=== PATIENT | female | born 1955 | race Asian ===

== ENCOUNTER 2017-01-05 06:55 | Emergency (ER) | payer OTHER ==
[~2017-01-05] VITALS: Ht 149.9 cm; Wt 50.0 kg
[~2017-01-05 06:55] MED LIST: GLUCTAB PO
[2017-01-05 06:59] VITALS: BP 180/90; PULSE 99; RESP 16; TEMP 98.1; O2SAT 99
--- NOTE | 2017-01-05 07:18 | PD ---
HPI Chief Complaint: Skin Problem Time Seen by Provider: 07:18 Travel History International Travel<30 days: No Contact w/Intl Traveler<30days: No Traveled to known affect area: No ( ) History of Present Illness HPI 61-year-old female presents to the emergency Department with complaint of redness and swelling to the back of her left hand that has worsened since Monday after being stuck with a cactus plant. Denies fever, chills, nausea, vomiting. Denies paresthesias, loss of sensation, decreased motion, decreased strength to the affected extremity. Has taken Tylenol with minimal relief of symptoms. Has not tried any other treatments to alleviate her symptoms. Does not know if she is up-to-date on her tetanus vaccination. Denies allergies. History of borderline diabetes. No other modifying factors or associated signs and symptoms. PFSH Past Medical History Medical History: Denies Significant Hx Diabetes: Yes Patient Takes Glucophage: No (STOPPED TAKING 6 MONTHS AGO) Tetanus Vaccination: > 5 Years ?: Not Social History Alcohol Use: No Tobacco Use: No Substance Use: No Allergies-Medications (Allergen,Severity, Reaction): Coded Allergies: No Known Allergies (Unverified , 01/05/17) Reported Meds & Prescriptions Reported Meds & Active Scripts Active Ibuprofen 600 Mg Tab 600 Mg PO Q8HR PRN Bactrim DS (Sulfamethoxazole-Trimethoprim) 800-160 Mg Tab 1 Tab PO BID 10 Days Keflex (Cephalexin) 500 Mg Cap 500 Mg PO Q6H 10 Days Review of Systems Except as stated in HPI: all other systems reviewed are Neg Physical Exam Narrative GENERAL: Well-nourished, well-developed female patient, in no acute distress; afebrile, nontoxic-appearing SKIN: Dorsal aspect of left hand is erythematous, edematous and with warmth to touch. Left upper extremity supple and non-tense with 2+ radial pulse and sensory intact. Hand is with full range of motion at all finger joints and less than 3 second cap refill. HEAD: Atraumatic. Normocephalic. EYES: Pupils equal and round. No scleral icterus. No injection or drainage. ENT: Mucosa pink and moist. Airway patent. NECK: Trachea midline. CARDIOVASCULAR: Regular rate. RESPIRATORY: No accessory muscle use. GASTROINTESTINAL: Flat. MUSCULOSKELETAL: No obvious deformities. No clubbing. No cyanosis. No edema. NEUROLOGICAL: Awake and alert. Oriented 3. No obvious cranial nerve deficits. Motor grossly within normal limits. Normal speech. PSYCHIATRIC: Appropriate mood and affect; insight and judgment normal. Data Data Last Documented VS Vital Signs Date Time Temp Pulse Resp B/P Pulse Ox O2 Delivery O2 Flow Rate FiO2 01/05/17 06:59 98.1 99 16 180/90 99 Room Air Orders Tetanus/Diphtheria Tox Adult (Tetanus/Di (01/05/17 07:30) Acetaminophen (Tylenol) (01/05/17 07:30) MDM Medical Decision Making Medical Screen Exam Complete: Yes Emergency Medical Condition: Yes Medical Record Reviewed: Yes Differential Diagnosis Cellulitis, puncture wound, medical clearance Narrative Course 61-year-old female physical exam consistent with cellulitis to the dorsal aspect of her left hand. Patient is afebrile and nontoxic-appearing. She denies fever, chills, nausea, vomiting. The left upper extremity supple and non -tense with 2+ radial pulses and sensory intact and with full strength and range of motion. Tetanus updated in the ER. Tylenol ordered. Keflex, Bactrim , ibuprofen prescribed for home. Patient verbalizes understanding and agreement with treatment plan. Patient is medically cleared and stable for discharge. Discussed reasons to return to the emergency department. Instructed patient to follow up with primary care provider. Patient agrees with treatment plan. The patients vital signs are stable and the patient is stable for outpatient follow-up and treatment. Patient discharged home, stable and in no acute distress. Diagnosis Primary Impression: Cellulitis of left hand Referrals: Primary Care Physician Patient Instructions: Cellulitis (ED), General Instructions Departure Forms: Tests/Procedures, Work Release Enter return to work date: Jan 05, 2017 Additional Instructions: Complete full course of antibiotics Warm or cold compresses to the affected area Keep area clean and dry Ibuprofen or Tylenol as directed and as needed for pain and inflammation Follow-up with primary care provider Return to emergency department immediately with worsening of symptoms Med/Other Pt SpecificInfo: Prescription(s) given Scripts Ibuprofen 600 Mg [id number] Mg PO Q8HR PRN (PAIN SCALE 1 TO 10) #20 TAB Ref 0 Prov:Patience White 01/05/17 Sulfamethoxazole-Trimethoprim (Bactrim DS)800-160 Mg Tab1 Tab PO BID 10 Days Ref 0 Prov:Patience White 01/05/17 Cephalexin (Keflex)500 Mg [id number] Mg PO Q6H 10 Days Ref 0 Prov:Patience White 01/05/17 Disposition: 01 DISCHARGE HOME Condition: Stable Patience White Jan 05, 2017 07:18
[2017-01-05] MEDS ORDERED: BACT800T5 PO (07:23)
[2017-01-05] MEDS ORDERED: IBUP-232 PO (07:23)
[2017-01-05] MEDS ORDERED: CEPH-460 PO (07:23)
[2017-01-05] MEDS ORDERED: TETANUS/DIPHTHERIA TOXOID ADULT 0.5 ML VIAL IM ONE (07:30)
[2017-01-05] MEDS ORDERED: ACETAMINOPHEN 325 MG TAB PO ONE (07:30)
[2017-01-16] MEDS ORDERED: BLOO1KIT49 (15:43)
[2017-01-27] MEDS ORDERED: METF500T PO (13:09)
[2017-01-30] MEDS ORDERED: METF500T PO (12:17)
[2017-02-03] MEDS ORDERED: METF500T PO (08:50)
[2017-02-03] MEDS ORDERED: LISI-519 PO (09:00)
[2017-03-06] MEDS ORDERED: BLOOD GLUCOSE T1 TES (22:36)
== END 2017-01-05 07:35 | disposition home or self-care (01) ==
LOC: NEPB 06:55
DX: L03.114 Cellulitis of left upper limb (principal); R73.03 Prediabetes; Z23 Encounter for immunization; X58.XXXA Exposure to other specified factors, initial encounter
CPT/HCPCS: 90471; 90714

== ENCOUNTER 2017-01-07 14:10 | Inpatient (IN) | payer OTHER ==
[~2017-01-07] VITALS: Ht 149.9 cm; Wt 51.9 kg
[~2017-01-07 14:10] MED LIST changes: +BACT800T5 PO; +CEPH-460 PO; -GLUCTAB PO; +IBUP-232 PO
[2017-01-07 14:13] VITALS: BP 175/89; PULSE 104; RESP 15; TEMP 98.2; O2SAT 98
[2017-01-07 17:46] VITALS: BP 159/76; PULSE 77; RESP 16; TEMP 98.4; O2SAT 99
--- NOTE | 2017-01-07 18:07 | PD ---
HPI Chief Complaint: Skin Problem Time Seen by Provider: 18:05 Travel History International Travel<30 days: No Contact w/Intl Traveler<30days: No Traveled to known affect area: No History of Present Illness HPI 61-year-old female presents to the emergency department for evaluation of worsening erythema and swelling to the left hand. Patient was seen on Monday for cellulitis of left hand. She was discharged prescription for Bactrim and Keflex. However, she states the redness and warmth have been worsening. She states the injury occurred on Monday when she was pricked by a cactus plant. The patient states she hasn't taken her antibiotics for 3 days now however, symptoms have been worsening. She denies any fevers. She does report a history of type 2 diabetes. She states she quit taking her metformin approximately one year ago. She does not check her blood sugars. She was not insulin-dependent. She denies any other medical problems or taking any prescribed medications at this time. PFSH Past Medical History Diabetes: Yes ("borderline") Patient Takes Glucophage: No Diminished Hearing: No ?: Not Social History Alcohol Use: No Tobacco Use: No Substance Use: No Allergies-Medications (Allergen,Severity, Reaction): Coded Allergies: No Known Allergies (Unverified , 01/06/17) Reported Meds & Prescriptions Reported Meds & Active Scripts Active Ibuprofen 600 Mg Tab 600 Mg PO Q8HR PRN Bactrim DS (Sulfamethoxazole-Trimethoprim) 800-160 Mg Tab 1 Tab PO BID 10 Days Keflex (Cephalexin) 500 Mg Cap 500 Mg PO Q6H 10 Days Review of Systems Except as stated in HPI: all other systems reviewed are Neg Physical Exam Narrative GENERAL: Well-nourished, well-developed female patient, ambulatory and in no acute distress. Afebrile. SKIN: Focused skin assessment warm/dry. Left dorsal hand is erythematous and warmth. Erythema extends approximately intermediate up the left forearm. There is swelling noted to the left dorsal hand. HEAD: Normocephalic. Atraumatic. EYES: No scleral icterus. No injection or drainage. NECK: Supple, trachea midline. No JVD or lymphadenopathy. CARDIOVASCULAR: Regular rate and rhythm without murmurs, gallops, or rubs. Left radial pulse is 2+ RESPIRATORY: Breath sounds equal bilaterally. No accessory muscle use. Lungs sounds are clear to auscultation. GASTROINTESTINAL: Abdomen soft, non-tender, nondistended. MUSCULOSKELETAL: No cyanosis, or edema. Patient has slightly limited flexion of all MCP joints due to pain and swelling. No evidence of septic joint. Data Data Last Documented VS Vital Signs Date Time Temp Pulse Resp B/P Pulse Ox O2 Delivery O2 Flow Rate FiO2 01/07/17 19:15 69 20 159/80 98 Room Air 01/07/17 17:46 98.4 Orders Iv Access Insert/Monitor (01/07/17 18:02) Complete Blood Count With Diff (01/07/17 18:02) Basic Metabolic Panel (Bmp) (01/07/17 18:02) Blood Culture (01/07/17 18:02) Lactic Acid Sepsis Protocol (01/07/17 18:02) Hand, Complete ([id number]) (01/07/17 ) Vancomycin Inj (Vancomycin Inj) (01/07/17 18:30) Piperacil-Tazo 3.375 Gm Premix (Zosyn 3. (01/07/17 18:30) Sodium Chlor 0.9% 1000 Ml Inj (Ns 1000 M (01/07/17 19:45) Admit Order (Ed Use Only) (01/07/17 19:41) Labs Laboratory Tests Test 01/07/17 18:30 White Blood Count 15.1 TH/MM3 Red Blood Count 4.73 MIL/MM3 Hemoglobin 13.7 GM/DL Hematocrit 41.1 % Mean Corpuscular Volume 87.0 FL Mean Corpuscular Hemoglobin 29.1 PG Mean Corpuscular Hemoglobin 33.4 % Concent Red Cell Distribution Width 13.3 % Platelet Count 302 TH/MM3 Mean Platelet Volume 7.7 FL Neutrophils (%) (Auto) 83.8 % Lymphocytes (%) (Auto) 10.2 % Monocytes (%) (Auto) 5.6 % Eosinophils (%) (Auto) 0.2 % Basophils (%) (Auto) 0.2 % Neutrophils # (Auto) 12.6 TH/MM3 Lymphocytes # (Auto) 1.5 TH/MM3 Monocytes # (Auto) 0.9 TH/MM3 Eosinophils # (Auto) 0.0 TH/MM3 Basophils # (Auto) 0.0 TH/MM3 CBC Comment DIFF FINAL Differential Comment Sodium Level 133 MEQ/L Potassium Level 4.3 MEQ/L Chloride Level 99 MEQ/L Carbon Dioxide Level 24.0 MEQ/L Anion Gap 10 MEQ/L Blood Urea Nitrogen 8 MG/DL Creatinine 0.63 MG/DL Estimat Glomerular Filtration 95 ML/MIN Rate Random Glucose 191 MG/DL Lactic Acid Level 2.4 mmol/L Calcium Level 9.0 MG/DL [facility] Medical Decision Making Medical Screen Exam Complete: Yes Emergency Medical Condition: Yes Medical Record Reviewed: Yes Interpretation(s) Last Impressions Hand X-Ray 01/07/17 0000 Signed Impressions: Service Date/Time: Saturday, January 07, 2017 18:28 - CONCLUSION: Dorsal soft tissue swelling. The osseous structures are grossly intact. Federico Cardenas MD Differential Diagnosis Cellulitis versus abscess versus old outpatient therapy versus sepsis Narrative Course 61-year-old female presents to the emergency department for evaluation of worsening left hand pain, erythema, swelling, warmth. She has been on Bactrim and Keflex for 3 days. Patient has failed outpatient therapy. Patient denies any other symptoms or complaints at this time. CBC shows leukocytosis of 15.1. BMP shows no acute abnormality. Lactic acid is elevated at 2.4. X-ray left hand shows dorsal soft tissue swelling, osseous structures are grossly intact. Patient is given normal saline 1 L IV bolus, Zosyn 3.375 g IV, vancomycin 1 g IV. Patient states the residents are her primary care physician. Dr. Junior accepted admission. Sepsis Criteria SIRS Criteria (2 or more): WBC > 45538, < 4000 or > 10% bands Diagnosis Primary Impression: Cellulitis of left hand Admitting Information Admitting Physician Requests: Admit Naida Apple Jan 07, 2017 18:07
[2017-01-07] MEDS ORDERED: VANCOMYCIN INJ 1,000 MG in SODIUM CHLOR 0.9% 250 ML INJ 250 ML IV ONE (18:30)
[2017-01-07] MEDS ORDERED: PIPERACIL-TAZO 3.375 GM PREMIX 50 ML IV ONE (18:30)
[2017-01-07 18:53] LABS: AUTOMATED NEUTROPHIL # 12.6 TH/MM3 (1.8-7.7); BASOPHIL % 0.2 % (0.0-2.0); EOSINOPHIL % 0.2 % (0.0-4.0); HEMATOCRIT 41.1 % (35.0-46.0); HEMO FLAGS DIFF FINAL; LYMPH % 10.2 % (9.0-44.0); LYMPHOCYTE # 1.5 TH/MM3 (1.0-4.8); MEAN CORPUSCULAR HEMOGLOBIN 29.1 PG (27.0-34.0); MEAN CORPUSCULAR HGB CONC 33.4 % (32.0-36.0); MONO % 5.6 % (0.0-8.0); NEUT % 83.8 % (16.0-70.0); PLATELET COUNT 302 TH/MM3 (150-450); RED BLOOD COUNT 4.73 MIL/MM3 (4.00-5.30); RED CELL DISTRIBUTION WIDTH 13.3 % (11.6-17.2); WHITE BLOOD COUNT 15.1 TH/MM3 (4.0-11.0)
--- NOTE | 2017-01-07 19:10 | PD ---
Physical Exam Date Seen by Provider: Jan 07, 2017 Time Seen by Provider: 18:30 Narrative I, Dr. Sullivan, have reviewed the advance practice practitioner's documentation and am in agreement, met with the patient face to face, made the diagnosis, and the medical decision making was done by me. *My assessment and Findings: Patient seen and evaluated with nurse practitioner , please see nurse practitioner documentation for further details. Patient has had injury to the left hand, has been on 2 antibiotics for cellulitis, returns today because the left hand is getting more red and swollen. On evaluation, there is notable erythema and edema over the left hand dorsum with no underlying fluctuance. Laboratory Tests Test 01/07/17 18:30 White Blood Count 15.1 TH/MM3 (4.0-11.0) Neutrophils (%) (Auto) 83.8 % (16.0-70.0) Neutrophils # (Auto) 12.6 TH/MM3 (1.8-7.7) Considering failed outpatient therapy and leukocytosis, IV antibiotics were initiated after cultures are drawn. At this point, plan would be to admit the patient as an observation for worsening in cellulitis and further IV antibiotic therapy. Patient may need hand to evaluate the hand cellulitis as well. Data Data Last Documented VS Vital Signs Date Time Temp Pulse Resp B/P Pulse Ox O2 Delivery O2 Flow Rate FiO2 01/07/17 17:46 98.4 77 16 159/76 99 Room Air Orders Iv Access Insert/Monitor (01/07/17 18:02) Complete Blood Count With Diff (01/07/17 18:02) Basic Metabolic Panel (Bmp) (01/07/17 18:02) Blood Culture (01/07/17 18:02) Lactic Acid Sepsis Protocol (01/07/17 18:02) Hand, Complete ([id number]) (01/07/17 ) Vancomycin Inj (Vancomycin Inj) (01/07/17 18:30) Piperacil-Tazo 3.375 Gm Premix (Zosyn 3. (01/07/17 18:30) Labs Laboratory Tests Test 01/07/17 18:30 White Blood Count 15.1 TH/MM3 Red Blood Count 4.73 MIL/MM3 Hemoglobin 13.7 GM/DL Hematocrit 41.1 % Mean Corpuscular Volume 87.0 FL Mean Corpuscular Hemoglobin 29.1 PG Mean Corpuscular Hemoglobin 33.4 % Concent Red Cell Distribution Width 13.3 % Platelet Count 302 TH/MM3 Mean Platelet Volume 7.7 FL Neutrophils (%) (Auto) 83.8 % Lymphocytes (%) (Auto) 10.2 % Monocytes (%) (Auto) 5.6 % Eosinophils (%) (Auto) 0.2 % Basophils (%) (Auto) 0.2 % Neutrophils # (Auto) 12.6 TH/MM3 Lymphocytes # (Auto) 1.5 TH/MM3 Monocytes # (Auto) 0.9 TH/MM3 Eosinophils # (Auto) 0.0 TH/MM3 Basophils # (Auto) 0.0 TH/MM3 CBC Comment DIFF FINAL Differential Comment MDM Medical Record Reviewed: Yes Supervised Visit with PEE: Yes Diagnosis Primary Impression: Cellulitis of left hand Admitting Information Admitting Physician Requests: Admit Walker Sullivan MD Jan 07, 2017 19:10
[2017-01-07 19:15] VITALS: BP 159/80; PULSE 69; RESP 20; O2SAT 98
[2017-01-07 19:21] LABS: POTASSIUM 4.3 MEQ/L (3.5-5.1)
[2017-01-07] MEDS ORDERED: SODIUM CHLOR 0.9% 1000 ML INJ 1,000 ML IV ONE (19:45)
--- NOTE | 2017-01-07 19:50 | RADRPT ---
EXAM DATE/TIME: 01/07/2017 18:28 [facility] COMPARISON: No previous studies available for comparison. INDICATIONS : Possible infection top of left hand. Puncture from palm thorn. MEDICAL HISTORY : None. SURGICAL HISTORY : None. ENCOUNTER: Initial ACUITY: 4 - 6 days PAIN SCORE: 7/10 LOCATION: Left upper extremity FINDINGS: Three view examination of the left hand demonstrates no foreign body, dislocation, or fracture. The carpal bones appear intact. The interphalangeal and metacarpophalangeal joints are intact. Bony mi neralization is normal. There is mild soft tissue thickening in the dorsum of the hand. No evidence of periosteal reaction. CONCLUSION: Dorsal soft tissue swelling. The osseous structures are grossly intact. Federico Cardenas MD on January 07, 2017 at 19:47 Board Certified Radiologist. This report was verified electronically.
[2017-01-07 20:43] LABS: LACTIC ACID GHOST NOT REPORTABLE
[2017-01-07] MEDS ORDERED: ACETAMINOPHEN 325 MG TAB PO PRN (21:00)
[2017-01-07] MEDS ORDERED: ONDANSETRON HCL 4 MG/2 ML VIAL IVP PRN (21:00)
[2017-01-07] MEDS ORDERED: SODIUM CHLORIDE 0.9% FLUSH 10 ML FLUSH IV FLUSH PRN (21:00)
[2017-01-07] MEDS ORDERED: NALOXONE HCL 0.4 MG/ML AMP IV PRN (21:00)
[2017-01-07] MEDS: SODIUM CHLOR 0.9% 1000 ML INJ 1,000 ML IV SCH (21:24)
[2017-01-07] MEDS: SODIUM CHLORIDE 0.9% FLUSH 10 ML FLUSH IV FLUSH SCH (21:24)
[2017-01-07] MEDS: ENOXAPARIN SODIUM 40 MG/0.4 ML SYRINGE SQ SCH (21:27)
[2017-01-07] MEDS ORDERED: hydrALAZINE HCL 10 MG TAB PO PRN (22:00)
[2017-01-07] MEDS ORDERED: GLUCAGON 1 MG/ML VIAL OTHER PRN (22:00)
[2017-01-07] MEDS ORDERED: DEXTROSE 50% IN WATER 50 ML VIAL(D50) IV PUSH PRN (22:00)
[2017-01-07 22:01] VITALS: BP 122/58; PULSE 75; RESP 18; TEMP 98.1; O2SAT 98
--- NOTE | 2017-01-07 22:09 | HHI.HP ---
HPI Service Family Medicine Primary Care Physician No Primary Care Physician Admission Diagnosis cellulitis of left hand; failed outpatient treatment Diagnoses: International Travel<30 Days: No Contact w/Intl Traveler<30days: No Known Affected Area: No History of Present Illness Ms. Rodriguez is a 61-year-old F with PMH of T2 DM, HLP presents with left hand swelling. Patient reports that she has had gradually increasing swelling/pain for the past 6 days since pricking the top of her hand on her cactus last Monday. Patient states that after several days, she noticed swelling/redness of her hand so sought medical evaluation at [place]; she was prescribed antibiotics [per EMR, patient seen 01/05 and Bactrim and Keflex were given for suspected cellulitis. Patient given Tdap vaccination. Patient was then seen by Dr. Vallecillo 01/06/2017; completion of antibiotics was advised along with warm compresses; patient advised to return for further evaluation with worsening erythema or swelling. Patient states that since evaluation by she has had progressively increasing redness/swelling of her left hand in that it is more painful to touch. Patient denies fever/chills, dizziness, shortness of breath, nausea/vomiting, urinary abnormalities, or other problems. Interval history: Patient evaluated in ED: Patient with initial HR 104. Initial labs demonstrative of leukocytosis (WBC 15.1) and lactic acid of 2.4. Patient given liter of NS bolus and started empirically on vancomycin and Zosyn. Review of Systems Constitutional: DENIES: Fever, Chills Eyes: DENIES: Blurred vision, Diplopia Ears, nose, mouth, throat: DENIES: Nasal discharge, Oral lesions Respiratory: DENIES: Cough, Shortness of breath Cardiovascular: DENIES: Chest pain, Syncope Gastrointestinal: DENIES: Abdominal pain, Constipation Genitourinary: DENIES: Urinary frequency, Urinary incontinence Musculoskeletal: COMPLAINS OF: Muscle aches, Stiffness Integumentary: DENIES: Abnormal pigmentation, Pruritus Hematologic/lymphatic: DENIES: Bruising, Lymphadenopathy Neurologic: DENIES: Headache Past Family Social History Past Medical History Per patient/EMR T2 DM (A1c >8 2014) Hyperlipidemia Tuberculosis at 26 yrs-treated with isoniazid x1 year [id number] Onset of menses 11 yrs, LMP 48 yrs Past Surgical History section 1 approximately 30 years prior Reported Medications Reported Meds & Active Scripts Active Ibuprofen 600 Mg Tab 600 Mg PO Q8HR PRN Bactrim DS (Sulfamethoxazole-Trimethoprim) 800-160 Mg Tab 1 Tab PO BID 10 Days Keflex (Cephalexin) 500 Mg Cap 500 Mg PO Q6H 10 Days Allergies: Coded Allergies: No Known Allergies (Unverified , 01/06/17) Family History Per EMR Father: , unknown history Mother: DM Sister: borderline DM Children: healthy 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 EYES: No scleral icterus, injection, or drainage. Wearing glasses. EOM grossly intact. HENT: Head: Normocephalic. Mouth: No lesions appreciated. Pharynx: Benign exam without erythema or exudate. NECK: No appreciated thyromegaly Lymph: No cervical adenopathy. No left axillary lymphadenopathy CARDIOVASCULAR: Regular rate and rhythm without murmurs. Normal peripheral perfusion in lower extremities. RESPIRATORY: Normal respiratory rate. Lungs clear to auscultation bilaterally. GASTROINTESTINAL: Abdomen soft, nondistended, nontender. Bowel sounds normal. NEURO/PSYCH: Awake, alert, and oriented. Cranial nerves grossly normal. Grossly normal motor and sensory function; normal sensation in L distal fingers SKIN: Warm and dry, no rashes appreciated with exception of L hand. L hand- large area of swelling extending several cm into forearm. This swelling also extends to palmar aspect of hand and forearm. Approximately 6 6.5 cm area of erythema over dorsal carpal/metacarpals. Approximately 24 cm area of possible fluctuance in the central area of erythema on the dorsal hand. (Areas of questionable fluctuance, erythema, and swelling were marked for comparison with tomorrow's exam) MUSCULOSKELETAL: No lower extremity swelling. No appreciated calf asymmetry. L forearm- impaired flexion of fingers due to swelling. Full extension. Mild pain with flexion. Pain to deep palpation of hand but otherwise pain not elicited. Laboratory Laboratory Tests Test 01/07/17 18:30 White Blood Count 15.1 Red Blood Count 4.73 Hemoglobin 13.7 Hematocrit 41.1 Mean Corpuscular Volume 87.0 Mean Corpuscular Hemoglobin 29.1 Mean Corpuscular Hemoglobin 33.4 Concent Red Cell Distribution Width 13.3 Platelet Count 302 Mean Platelet Volume 7.7 Neutrophils (%) (Auto) 83.8 Lymphocytes (%) (Auto) 10.2 Monocytes (%) (Auto) 5.6 Eosinophils (%) (Auto) 0.2 Basophils (%) (Auto) 0.2 Neutrophils # (Auto) 12.6 Lymphocytes # (Auto) 1.5 Monocytes # (Auto) 0.9 Eosinophils # (Auto) 0.0 Basophils # (Auto) 0.0 CBC Comment DIFF FINAL Differential Comment Sodium Level 133 Potassium Level 4.3 Chloride Level 99 Carbon Dioxide Level 24.0 Anion Gap 10 Blood Urea Nitrogen 8 Creatinine 0.63 Estimat Glomerular Filtration 95 Rate Random Glucose 191 Lactic Acid Level 2.4 Calcium Level 9.0 Date/Time Procedure Status Source Growth 01/07/17 18:35 Aerobic Blood Culture Received Blood Peripheral Pending 01/07/17 18:35 Anaerobic Blood Culture Received Blood Peripheral Pending Result Diagram: 01/07/17 1830 01/07/17 1830 Imaging Last Impressions Hand X-Ray 01/07/17 0000 Signed Impressions: Service Date/Time: Saturday, January 07, 2017 18:28 - CONCLUSION: Dorsal soft tissue swelling. The osseous structures are grossly intact. Federico Cardenas MD Septic Shock Reassessment Heart: Regular rate and rhythm (tachycardia initially, resolved) Lungs: Clear Skin: Other (L hand cellulitic infection) Peripheral Pulses: Bounding Right Radial Bounding Left Radial Capillary Refill: <2 seconds, Other Assessment and Plan Assessment and Plan Ms. Rodriguez is a 61 yo F with: Problem List: (1) Cellulitis of left hand Status: Acute Plan: Continue IV NS 100 mL/HR -s/p 1 L NS bolus Trend lactic acid Continue empiric antibiotic coverage -Vancomycin 15 mg/kilogram every 12 hours (initially given 1gm x1 in ED) -Zosyn 3.375 gm every 6 hours -Will check US for abscess/deep fluid collections and consult Hand Surgery based on results -Will check ESR Impression: Approximately 1 week history of worsening cellulitis of left hand with possible subcutaneous abscess. No known sensory or motor defect of hand with exception of impaired range of motion due to swelling. PMH of uncontrolled T2 DM. Patient meeting sepsis criteria on admission due to leukocytosis and tachycardia. Initial lactic acid 2.4 Hand XR- Dorsal soft tissue swelling, osseous structures intact Blood cultures: pending (2) Sepsis Status: Resolved Plan: Impression: Patient met sepsis criteria on admission with WBC 15.4K, HR 104, and L hand as source of infection. Patient initially with Lactic acid of 2.4 -NS bolus x1 L given -Continue maintenance fluids as patient with normal VS at this time -Continue empiric Vancomycin and Zosyn (3) Diabetes Status: Chronic Plan: Impression: Patient reports chronic DM that was not well controlled. Per EMR; patient has had persistent A1C >8 over the past several years -Accuchecks, SS low dose Novolog while inpatient -Will check A1C -Discussed initiation of LOYD for renal protection on discharge -Plan to discharge with Metformin 1000mg BID ASCVD risk -ASA 81mg encouraged on discharge (4) Hyperlipidemia Status: Chronic Plan: Impression: Patient with PMH of hyperlipidemia on prior outpatient labs -Discussed statin initiation on discharge (5) DVT Prophylaxis Status: Acute Plan: -Pt defers Lovenox -Will give SCD's bilaterally; patient encouraged to ambulate (6) Nutrition, metabolism, and development symptoms Status: Acute Plan: Fluids: NS 100ml/hr -s/p 1 L NS bolus Nutrition: Regular diet Elec Physician Certification 2 Midnight Certification Type: Admission for Inpatient Services Order for Inpatient Services The services are ordered in accordance with Medicare regulations or non- Medicare payer requirements, as applicable. In the case of services not specified as inpatient-only, they are appropriately provided as inpatient services in accordance with the 2-midnight benchmark. Estimated LOS (days): 2 days is the estimated time the patient will need to remain in the hospital, assuming treatment plan goals are met and no additional complications. Post-Hospital Plan: Home Problem Qualifiers (1) Diabetes: Qualified Code: E11.8 - Type 2 diabetes mellitus with complication, without long-term current use of insulin (2) Hyperlipidemia: Qualified Code: E78.5 - Hyperlipidemia, unspecified hyperlipidemia type Nixon Travis MD R2 Jan 07, 2017 22:09
[2017-01-07 23:59] VITALS: BP 120/59; PULSE 73; RESP 19; TEMP 98.2; O2SAT 94
--- NOTE | 2017-01-08 00:14 | RADRPT ---
EXAM DATE/TIME: 01/07/2017 22:49 [facility] COMPARISON: No previous studies available for comparison. INDICATIONS : Left hand swelling and redness. MEDICAL HISTORY : Borderline diabetes. Left hand cellulitis. SURGICAL HISTORY : None. ENCOUNTER: Initial ACUITY: 4-6 days PAIN SCORE: 3/10 LOCATION: Left hand. AREA EVALUATED: Back of left hand. FINDINGS: Grayscale and Doppler imaging at the posterior aspect of the hand in the area of clinical interest do cument its a subcutaneous fluid collection superficial to the metacarpals measuring approximately 5.4 x 0.8 x 2.8 cm. There is mild hyperemia in the surrounding soft tissue. No definite extension is vis ualized deeper between the metacarpals. CONCLUSION: Complex appearing fluid collection, as above, along the posterior superficial aspect of the left hand . Charan Geller MD on January 08, 2017 at 0:11 Board Certified Radiologist. This report was verified electronically.
[2017-01-08] MEDS: PIPERACIL-TAZO 3.375 GM PREMIX 50 ML IV SCH ×2 (01:04→06:50)
[2017-01-08] MEDS ORDERED: ACETAMINOPHEN 500 MG CPLT PO PRN (01:15)
[2017-01-08] MEDS ORDERED: oxyCODONE/ACETAMINOPHEN 5 MG/325 MG TAB PO PRN (01:15)
[2017-01-08 03:20] VITALS: BP 130/61; PULSE 69; RESP 18; TEMP 98; O2SAT 96
--- NOTE | 2017-01-08 04:36 | RADRPT ---
EXAM DATE/TIME: 01/08/2017 03:36 [place] COMPARISON: No previous studies available for comparison. INDICATIONS : Left hand and wrist pain and swelling, inflammation. MEDICAL HISTORY : None. SURGICAL HISTORY : None. ENCOUNTER: Subsequent ACUITY: 4 - 6 days PAIN SCORE: 7/10 LOCATION: Left hand/wrist FINDINGS: Three views of the left wrist demonstrate no fracture or dislocation. Mineralization is within normal limits. There is no significant arthropathy. No radiopaque foreign body is identified. There is soft tissue swelling along the posterior aspect of the hand and wrist. CONCLUSION: There is posterior hand and wrist soft tissue swelling. No acute osseous abnormality is identified. Charan Geller MD on January 08, 2017 at 4:33 Board Certified Radiologist. This report was verified electronically.
[2017-01-08] MEDS: SODIUM CHLOR 0.9% 1000 ML INJ 1,000 ML IV SCH ×2 (06:50→15:30)
[2017-01-08] MEDS: INSULIN ASPART SUPPLEMENTAL SCALE SQ SCH ×4 (06:55→21:55)
[2017-01-08] MEDS: SODIUM CHLORIDE 0.9% FLUSH 10 ML FLUSH IV FLUSH SCH ×2 (07:59→21:22)
[2017-01-08 08:17] LABS: AUTOMATED NEUTROPHIL # 7.5 TH/MM3 (1.8-7.7); BASOPHIL % 0.4 % (0.0-2.0); EOSINOPHIL % 0.5 % (0.0-4.0); HEMATOCRIT 36.1 % (35.0-46.0); HEMO FLAGS DIFF FINAL; LYMPH % 7.8 % (9.0-44.0); LYMPHOCYTE # 0.7 TH/MM3 (1.0-4.8); MEAN CELL VOLUME 85.8 FL (80.0-100.0); MEAN CORPUSCULAR HEMOGLOBIN 28.9 PG (27.0-34.0); MEAN CORPUSCULAR HGB CONC 33.7 % (32.0-36.0); MONO % 7.1 % (0.0-8.0); NEUT % 84.2 % (16.0-70.0); PLATELET COUNT 287 TH/MM3 (150-450); RED BLOOD COUNT 4.21 MIL/MM3 (4.00-5.30); RED CELL DISTRIBUTION WIDTH 13.4 % (11.6-17.2); WHITE BLOOD COUNT 8.9 TH/MM3 (4.0-11.0)
[2017-01-08 08:35] LABS: ANION GAP 10 MEQ/L (5-15); BICARBONATE 21.6 MEQ/L (21.0-32.0); BLOOD UREA NITROGEN 5 MG/DL (7-18); CHLORIDE 106 MEQ/L (98-107); GLOMERULAR FILTRATION RATE 134 ML/MIN (>89); POTASSIUM 3.9 MEQ/L (3.5-5.1); SODIUM (NA) 138 MEQ/L (136-145)
[2017-01-08] MEDS ORDERED: diphenhydrAMINE HCL 25 MG CAP PO PRN (09:00)
[2017-01-08] MEDS: VANCOMYCIN INJ 750 MG in SODIUM CHLOR 0.9% 250 ML INJ 250 ML IV SCH ×2 (09:26→21:21)
--- NOTE | 2017-01-08 09:28 | HHI.HP ---
[facility] Service Family Medicine Primary Care Physician No Primary Care Physician Admission Diagnosis cellulitis of left hand; failed outpatient treatment Diagnoses: (1) Cellulitis of left hand Diagnosis: Principal (2) Sepsis Diagnosis: Principal (3) Diabetes Diagnosis: Principal (4) Hyperlipidemia Diagnosis: Principal (5) DVT Prophylaxis Diagnosis: Principal (6) Nutrition, metabolism, and development symptoms Diagnosis: Principal International Travel<30 Days: No Contact w/Intl Traveler<30days: No Known Affected Area: No History of Present Illness Ms. Rodriguez is a 61-year-old F with PMH of T2 DM, HLP presents with left hand swelling. Patient reports that she has had gradually increasing swelling/pain for the past 6 days since pricking the top of her hand on her cactus last Monday. Patient states that after several days, she noticed swelling/redness of her hand so sought medical evaluation at [facility]; she was prescribed antibiotics [per EMR, patient seen 01/05 and Bactrim and Keflex were given for suspected cellulitis. Patient given Tdap vaccination. Patient was then seen by Dr. Vallecillo 01/06/2017; completion of antibiotics was advised along with warm compresses; patient advised to return for further evaluation with worsening erythema or swelling. Patient states that since evaluation by , she has had progressively increasing redness/swelling of her left hand in that it is more painful to touch. She also reports increased spread of the erythema up her arm despite abx. Patient denies fever/chills, dizziness, shortness of breath , nausea/vomiting, urinary abnormalities, or other problems. Interval history: Patient evaluated in ED: Patient with initial HR 104. Initial labs demonstrative of leukocytosis (WBC 15.1) and lactic acid of 2.4. Patient given liter of NS bolus and started empirically on vancomycin and Zosyn. She is having some fluctuance over the dorsum of her hand and we discussed having any abscess drained as that speeds up the healing process. She is reluctant to have any procedures but I explained that if she has an abscess getting it drained is the fastest way to get better. She feels well otherwise and wants to go home as soon as she can. Review of Systems Other Constitutional: DENIES: Fever, Chills Eyes: DENIES: Blurred vision, Diplopia Ears, nose, mouth, throat: DENIES: Nasal discharge, Oral lesions Respiratory: DENIES: Cough, Shortness of breath Cardiovascular: DENIES: Chest pain, Syncope Gastrointestinal: DENIES: Abdominal pain, Constipation Genitourinary: DENIES: Urinary frequency, Urinary incontinence Musculoskeletal: COMPLAINS OF: Muscle aches, Stiffness Integumentary: DENIES: Abnormal pigmentation, Pruritus Hematologic/lymphatic: DENIES: Bruising, Lymphadenopathy Neurologic: DENIES: Headache Past Family Social History Past Medical History Per patient/EMR T2 DM (A1c >8 2014) Hyperlipidemia Tuberculosis at 26 yrs-treated with isoniazid x1 year [id number] Onset of menses 11 yrs, LMP 48 yrs Past Surgical History section 1 approximately 30 years prior Allergies: Coded Allergies: No Known Allergies (Unverified , 01/06/17) Family History Per EMR Father: , unknown history Mother: DM Sister: borderline DM Children: healthy 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 talkative EYES: No scleral icterus, injection, or drainage. EOM grossly intact. HENT: Head: Normocephalic. Mouth: No lesions appreciated. NECK: No appreciated thyromegaly Lymph: No cervical adenopathy. No left axillary lymphadenopathy CARDIOVASCULAR: Regular rate and rhythm without murmurs. Normal peripheral perfusion in lower extremities. RESPIRATORY: Normal respiratory rate. Lungs clear to auscultation bilaterally. GASTROINTESTINAL: Abdomen soft, nondistended, nontender. Bowel sounds normal. NEURO/PSYCH: Awake, alert, and oriented. Cranial nerves grossly normal. Grossly normal motor and sensory function; normal sensation in L distal fingers SKIN: Warm and dry, no rashes appreciated with exception of L hand. L hand- large area of swelling extending several cm into forearm. This swelling also extends to palmar aspect of hand and forearm. Approximately 6 6.5 cm area of erythema over dorsal carpal/metacarpals. Approximately 24 cm area of fluctuance in the central area of erythema on the dorsal hand. (Areas of questionable fluctuance, erythema, and swelling were marked for comparison) MUSCULOSKELETAL: No lower extremity swelling. No appreciated calf asymmetry. L forearm- impaired flexion of fingers due to swelling. Full extension. Mild pain with flexion. Pain to deep palpation of hand but otherwise pain not elicited. Laboratory Laboratory Tests Test 01/07/17 01/07/17 01/08/17 18:30 21:25 07:45 White Blood Count 15.1 8.9 Red Blood Count 4.73 4.21 Hemoglobin 13.7 12.2 Hematocrit 41.1 36.1 Mean Corpuscular Volume 87.0 85.8 Mean Corpuscular Hemoglobin 29.1 28.9 Mean Corpuscular Hemoglobin 33.4 33.7 Concent Red Cell Distribution Width 13.3 13.4 Platelet Count 302 287 Mean Platelet Volume 7.7 7.5 Neutrophils (%) (Auto) 83.8 84.2 Lymphocytes (%) (Auto) 10.2 7.8 Monocytes (%) (Auto) 5.6 7.1 Eosinophils (%) (Auto) 0.2 0.5 Basophils (%) (Auto) 0.2 0.4 Neutrophils # (Auto) 12.6 7.5 Lymphocytes # (Auto) 1.5 0.7 Monocytes # (Auto) 0.9 0.6 Eosinophils # (Auto) 0.0 0.0 Basophils # (Auto) 0.0 0.0 CBC Comment DIFF FINAL DIFF FINAL Differential Comment Erythrocyte Sedimentation Rate 28 Sodium Level 133 138 Potassium Level 4.3 3.9 Chloride Level 99 106 Carbon Dioxide Level 24.0 21.6 Anion Gap 10 10 Blood Urea Nitrogen 8 5 Creatinine 0.63 0.47 Estimat Glomerular Filtration 95 134 Rate Random Glucose 191 141 Lactic Acid Level 2.4 1.0 Calcium Level 9.0 8.4 Date/Time Procedure Status Source Growth 01/07/17 18:35 Aerobic Blood Culture Received Blood Peripheral Pending 01/07/17 18:35 Anaerobic Blood Culture Received Blood Peripheral Pending Result Diagram: 01/08/17 0745 01/08/17 0745 Imaging Last Impressions Hand X-Ray 01/07/17 0000 Signed Impressions: Service Date/Time: Saturday, January 07, 2017 18:28 - CONCLUSION: Dorsal soft tissue swelling. The osseous structures are grossly intact. Federico Cardenas MD Septic Shock Reassessment Heart: Regular rate and rhythm Lungs: Clear Skin: Warm Assessment and Plan Assessment and Plan Ms. Rodriguez is a 61 yo F with: Problem List: (1) Cellulitis of left hand Status: Acute Plan: Continue IV NS 100 mL/HR, can stop iv when taking po -s/p 1 L NS bolus Trended lactic acid, now normal Continue empiric antibiotic coverage -Vancomycin 15 mg/kilogram every 12 hours (initially given 1gm x1 in ED) -Zosyn 3.375 gm every 6 hours, should be able to stop. Suspect staph with fluctuance and probable abscess -Checked US for abscess/deep fluid collections and consulted Hand Surgery based on results -Will check ESR Impression: Approximately 1 week history of worsening cellulitis of left hand with possible subcutaneous abscess. No known sensory or motor defect of hand with exception of impaired range of motion due to swelling. PMH of uncontrolled T2 DM. Patient meeting sepsis criteria on admission due to leukocytosis and tachycardia. Initial lactic acid 2.4 Hand XR- Dorsal soft tissue swelling, osseous structures intact Blood cultures: pending (2) Sepsis Status: Resolved Plan: Impression: Patient met sepsis criteria on admission with WBC 15.4K, HR 104, and L hand as source of infection. Patient initially with Lactic acid of 2.4 -NS bolus x1 L given -Continue maintenance fluids as patient with normal VS at this time -Continue empiric Vancomycin, appreciate further recs from hand surgeon and will follow cultures (3) Diabetes Status: Chronic Plan: Impression: Patient reports chronic DM that was not well controlled. Per EMR; patient has had persistent A1C >8 over the past several years -Accuchecks, SS low dose Novolog while inpatient -Will check A1C -Discussed initiation of LOYD for renal protection on discharge -Plan to discharge with Metformin 1000mg BID she has an appt as outpt with primary care Dr Naranjo who can work on DM intermediate control ASCVD risk -ASA 81mg encouraged on discharge (4) Hyperlipidemia Status: Chronic Plan: Impression: Patient with PMH of hyperlipidemia on prior outpatient labs -Discussed statin initiation on discharge vs when she sees her outpt Dr (5) DVT Prophylaxis Status: Acute Plan: -Pt defers Lovenox -Will give SCD's bilaterally; patient encouraged to ambulate (6) Nutrition, metabolism, and development symptoms Status: Acute Plan: Fluids: NS 100ml/hr -s/p 1 L NS bolus Nutrition: Regular diet, held pending possible procedure today Electrolytes will follow Physician Certification 2 Midnight Certification Type: Admission for Inpatient Services Order for Inpatient Services The services are ordered in accordance with Medicare regulations or non- Medicare payer requirements, as applicable. In the case of services not specified as inpatient-only, they are appropriately provided as inpatient services in accordance with the 2-midnight benchmark. Estimated LOS (days): 3 3 days is the estimated time the patient will need to remain in the hospital, assuming treatment plan goals are met and no additional complications. Post-Hospital Plan: Home Problem Qualifiers (1) Diabetes: Qualified Code: E11.8 - Type 2 diabetes mellitus with complication, without long-term current use of insulin (2) Hyperlipidemia: Qualified Code: E78.5 - Hyperlipidemia, unspecified hyperlipidemia type Alivia Mcginnis MD Jan 08, 2017 09:28
[2017-01-08 10:59] LABS: HEMOGLOBIN A1a 0.8 %; HEMOGLOBIN A1b 0.8 %; HEMOGLOBIN Ao 78.6 %; HEMOGLOBIN F 1.5 %; HEMOGLOBIN LA1C 2.3 %; HEMOGLOBIN P3 4.6 %
[2017-01-08 11:31] VITALS: BP 128/59; PULSE 82; RESP 20; TEMP 97.9; O2SAT 95
[2017-01-08] MEDS ORDERED: LACTATED RINGER'S 1000 ML INJ 1,000 ML IV ONE (12:00)
[2017-01-08] MEDS ORDERED: ONDANSETRON HCL 4 MG/2 ML VIAL IV PUSH ONE (12:00)
[2017-01-08] MEDS ORDERED: PROPOFOL 200 MG/20 ML AMP IV ONE (12:00)
[2017-01-08] MEDS ORDERED: PHENYLEPH/NS 1000 MCG/10 ML SYR IV ONE (12:00)
[2017-01-08] MEDS ORDERED: LIDOCAINE HCL 2% 50 ML VIAL ONE (13:45)
[2017-01-08] MEDS ORDERED: BACITRACIN TOP OINT 15 GM TUBE ONE (13:45)
[2017-01-08] MEDS ORDERED: BUPIVACAINE HCL PF 0.5% 30 ML VIAL ONE (13:45)
[2017-01-08] MEDS ORDERED: NEOMYCIN/POLYMYXIN 1 ML G.U. IRRIGANT IR ONE (14:21)
[2017-01-08] MEDS ORDERED: ceFAZolin INJ 1,000 MG VIAL IV ONE (14:27)
[2017-01-08] MEDS ORDERED: DO NOT ADM ANY ANTICOAGULANT DRUGS PRN (15:16)
[2017-01-08] MEDS ORDERED: MIDAZOLAM HCL 2 MG/2 ML VIAL ONE (15:21)
[2017-01-08] MEDS ORDERED: fentaNYL CITRATE 250 MCG/5 ML AMP ONE (15:21)
--- NOTE | 2017-01-08 15:36 | PD.ORT.PN ---
Subjective Subjective Remarks Patient reports pain controlled left hand. Denies paresthesias. Objective Vitals Vital Signs Date Time Temp Pulse Resp B/P Pulse Ox O2 Delivery O2 Flow Rate FiO2 01/08/17 11:31 97.9 82 20 128/59 95 01/08/17 03:20 98.0 69 18 130/61 96 01/07/17 23:59 98.2 73 19 120/59 94 01/07/17 22:01 98.1 75 18 122/58 98 Room Air 01/07/17 19:15 69 20 159/80 98 Room Air 01/07/17 17:46 98.4 77 16 159/76 99 Room Air 01/07/17 17:45 16 I/O 01/07/17 01/07/17 01/07/17 01/08/17 01/08/17 01/08/17 07:00 15:00 23:00 07:00 15:00 23:00 Intake Total 240 ml 100 ml Balance 240 ml 100 ml Intake Oral 240 ml IV Total 100 ml # Voids 1 Result Diagram: 01/08/17 0745 01/08/17 0745 Imaging Last 24 hours Impressions Wrist X-Ray 01/08/17 0000 Signed Impressions: Service Date/Time: Sunday, January 08, 2017 03:36 - CONCLUSION: There is posterior hand and wrist soft tissue swelling. No acute osseous abnormality is identified. Charan Geller MD Soft Tissue Ultrasound 01/07/17 2300 Signed Impressions: Service Date/Time: Saturday, January 07, 2017 22:49 - CONCLUSION: Complex appearing fluid collection, as above, along the posterior superficial aspect of the left hand. 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
[2017-01-08 16:30] VITALS: BP 116/58; PULSE 81; RESP 16; TEMP 97.7; O2SAT 95
[2017-01-08 18:33] VITALS: O2SAT 95
[2017-01-08 20:00] VITALS: BP 119/56; PULSE 89; RESP 20; TEMP 97.4; O2SAT 97
[2017-01-08] MEDS: ENOXAPARIN SODIUM 40 MG/0.4 ML SYRINGE SQ SCH (21:55)
[2017-01-09] VITALS (7 sets, daily range): BP systolic 108–158; BP diastolic 56–88; PULSE 64–85; RESP 16–18; TEMP 96.7–98.2; O2SAT 95–99
[2017-01-09] MEDS: SODIUM CHLOR 0.9% 1000 ML INJ 1,000 ML IV SCH ×2 (03:01→11:23)
[2017-01-09 05:44] LABS: AUTOMATED NEUTROPHIL # 8.1 TH/MM3 (1.8-7.7); BASOPHIL % 0.2 % (0.0-2.0); EOSINOPHIL % 0.1 % (0.0-4.0); HEMO FLAGS DIFF FINAL; LYMPH % 11.5 % (9.0-44.0); LYMPHOCYTE # 1.1 TH/MM3 (1.0-4.8); MEAN CELL VOLUME 87.8 FL (80.0-100.0); MEAN CORPUSCULAR HEMOGLOBIN 28.8 PG (27.0-34.0); MEAN CORPUSCULAR HGB CONC 32.8 % (32.0-36.0); MONO % 6.8 % (0.0-8.0); NEUT % 81.4 % (16.0-70.0); PLATELET COUNT 272 TH/MM3 (150-450); RED BLOOD COUNT 4.33 MIL/MM3 (4.00-5.30); RED CELL DISTRIBUTION WIDTH 13.3 % (11.6-17.2); WHITE BLOOD COUNT 9.9 TH/MM3 (4.0-11.0)
[2017-01-09] MEDS: INSULIN ASPART SUPPLEMENTAL SCALE SQ SCH ×4 (05:59→21:14)
[2017-01-09 06:00] LABS: BICARBONATE 20.3 MEQ/L (21.0-32.0); POTASSIUM 4.2 MEQ/L (3.5-5.1)
--- NOTE | 2017-01-09 08:26 | MB ---
cc: LICHA HERNANDEZ DATE OF SERVICE 01/08/2017 REASON FOR CONSULTATION Abscess left dorsal hand. 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 Here in the hospital her glucose was 141 with a hemoglobin A1c of 10.4. The patient states that she was in her normal state of health until one week ago. She was out in the yard and sustained a prick by a cactus over the dorsum of the left hand. She states that after that she noted swelling and pain. She did continue to work throughout the week and presented to [facility] on . She states that she was given a prescription for antibiotics which she completed and the she re-presented to the hospital yesterday due to the increasing pain and swelling. She was started on IV antibiotics and reports minimal improvement in her symptoms on the IV antibiotics. I was not consulted until early this morning at approximately 02:00 a.m. I made the patient n.p.o., reviewed her labs and I have seen the patient for evaluation. She denies any paresthesias in the hand. Again, she reports significant swelling of the dorsum of the hand with difficulty flexing the fingers. She denies any prior injury to the left hand. PAST MEDICAL HISTORY 1. Type 2 diabetes. 2. Hyperlipidemia. 3. Tuberculosis. PAST SURGICAL HISTORY . ALLERGIES No known drug allergies. 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 Denies tobacco, alcohol or drug use. OBJECTIVE VITAL SIGNS: The patient is afebrile with temperature of 98.0. LABORATORY DATA White count on presentation was a 15.1 which is now 8.9. ESR 28. Again, hemoglobin A1c 10.4. EXAM OF THE LEFT HAND Significant cellulitis and swelling on the dorsum of the hand. The patient is able to extend and flex her fingers but was unable to flex the fingers at the MP joint. The area of swelling is dorsal to the third metacarpal extending over the third metacarpophalangeal joint which is where the patient states that the cactus thorn entered. She has an area of fluctuance under the skin measuring approximately 2 x 4 cm. Ultrasound showed fluid collection. Sensation is intact in median, ulnar and radial distribution. Less than 2-second capillary refill to the fingers. The patient does have swelling to the fingers. IMAGING STUDIES AP lateral oblique x-rays of the left hand were reviewed which shows no evidence of fracture or metallic foreign body. ASSESSMENT AND PLAN A 61-year-old female with one-week history of swelling on the dorsum of the hand after a cactus injury in a patient with uncontrolled diabetes. Treatment options were discussed with the patient. Before proceeding with surgical intervention, she did elect to proceed with aspiration. Under sterile condition using a Hibiclens scrub and 23-gauge needle was used to aspirate fluid. This was lalito pus. After seeing this, this was sent for culture and the treatment options were discussed with the patient. At this time I did recommend surgical intervention. Initially she was hesitant to proceed but again after seeing the lalito purulence, she elected to proceed with surgical intervention. She understands that she will likely be off work for several weeks. She understands she has a high risk of sepsis, wound complications, infection due to her uncontrolled diabetes, as well as stiffness in the hand. She understands she will likely remain in the hospital for at least three days of IV antibiotics. Infectious Disease will be consulted. She will be taken to the operating room at the earliest available time. MD TRESSA Conway/SSB /3:27 PM /8:12 AM [facility]
[2017-01-09] MEDS: SODIUM CHLORIDE 0.9% FLUSH 10 ML FLUSH IV FLUSH SCH ×2 (09:00→21:15)
[2017-01-09] MEDS: VANCOMYCIN INJ 750 MG in SODIUM CHLOR 0.9% 250 ML INJ 250 ML IV SCH ×2 (09:26→21:15)
[2017-01-09] MEDS ORDERED: Vancomycin Consult Pharmacy 1 EA OTHER SCH (13:00)
--- NOTE | 2017-01-09 14:02 | HHI.FPPN ---
Subjective Remarks Patient seen and examined. No acute events overnight. Vital signs stable. Afebrile. She is POD#1 s/p I&D left hand dorsal abscess. Tolerated procedure well. States that she feels much better. Pain is adequately controlled. Denies weakness or paresthesia in her left hand. No other complaints. (Tiana Fenton MD R3) Objective Vitals Vital Signs Date Time Temp Pulse Resp B/P Pulse Ox O2 Delivery O2 Flow Rate FiO2 01/09/17 12:00 98.0 67 16 122/71 99 01/09/17 09:18 95 21 01/09/17 08:00 97.1 71 17 129/88 98 01/09/17 04:00 96.7 64 18 121/60 99 01/09/17 00:00 96.7 71 18 108/56 97 01/08/17 20:00 97.4 89 20 119/56 97 01/08/17 18:33 95 Nasal Cannula 2.00 01/08/17 16:30 97.7 81 16 116/58 95 01/08/17 15:45 78 16 122/76 96 Room Air 01/08/17 15:30 78 16 123/72 97 Room Air 01/08/17 15:15 97.9 94 16 128/77 99 I/O 01/08/17 01/08/17 01/08/17 01/09/17 01/09/17 01/09/17 07:00 15:00 23:00 07:00 15:00 23:00 Intake Total 100 ml 530 ml 1737 ml Output Total 800 ml Balance 100 ml 530 ml 937 ml Intake Oral 480 ml 320 ml IV Total 100 ml 50 ml 1417 ml Output Urine Total 800 ml # Voids 2 # Bowel Movements 0 0 (Tiana Fenton MD R3) Result Diagram: 01/09/17 0459 01/09/17 0459 Imaging Wrist X-Ray 01/08/17 0000 Signed Impressions: Service Date/Time: Sunday, January 08, 2017 03:36 - CONCLUSION: There is posterior hand and wrist soft tissue swelling. No acute osseous abnormality is identified. Charan Geller MD Soft Tissue Ultrasound 01/07/17 2300 Signed Impressions: Service Date/Time: Saturday, January 07, 2017 22:49 - CONCLUSION: Complex appearing fluid collection, as above, along the posterior superficial aspect of the left hand. Charan Geller MD Hand X-Ray 01/07/17 0000 Signed Impressions: Service Date/Time: Saturday, January 07, 2017 18:28 - CONCLUSION: Dorsal soft tissue swelling. The osseous structures are grossly intact. Federico Cardenas MD Objective Remarks GENERAL: Pleasant female in no acute distress. EYES: No scleral icterus, injection, or drainage. Wearing glasses. EOM grossly intact. HENT: Head: Normocephalic. Mouth: No lesions appreciated. Pharynx: Benign exam without erythema or exudate. NECK: No appreciated thyromegaly Lymph: No cervical adenopathy. No left axillary lymphadenopathy CARDIOVASCULAR: Regular rate and rhythm without murmurs. <2 sec capillary refills in left fingertips. RESPIRATORY: Normal respiratory rate. Lungs clear to auscultation bilaterally. GASTROINTESTINAL: Abdomen soft, nondistended, nontender. Bowel sounds normal. NEURO/PSYCH: Awake, alert, and oriented. Cranial nerves grossly normal. Grossly normal motor and sensory function; normal sensation in L distal fingers SKIN: Left hand with dressing in place. No surrounding erythema or edema in UEs. MUSCULOSKELETAL: No lower extremity swelling. No appreciated calf asymmetry. Able to wiggle fingers. Sensation intact. (Tiana Fenton MD R3) A/P Assessment and Plan Ms. Rodriguez is a 61 yo F who was admitted for left hand cellulitis and abscess s/p I &D on 01/08/17. Doing well postoperatively. Wound culture pending; currently stable on IV Vancomycin. Discharge Planning Discharge pending hand surgery clearance; likely on 01/10. (Tiana Fenton MD R3) Attending Attestation Patient seen, examined and discussed with resident team. I agree with assessment and management as documented and discussed with me. Pt reports pain is minimal after surgery. She feels her hand is much improved. Appreciate ID, hand surgery. Discussed importance of controlling diabetes with patient. (Letitia Brownlee MD) Problem List: (1) Abscess of hand, left Status: Acute Plan: Improving on Vancomycin (01/07/17-). Leukocytosis and lactic acidosis resolved. ESR WNL Hand surgery consulted: She is S/P I&D on 01/08. 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 May need transition to oral antibiotics upon discharge. -Received 2 doses of Zosyn (01/07-01/08) -Wound cultures pending -Bcx 01/07 NGTD Imaging: -Hand U/S:Complex appearing fluid collection along posterior superficial aspect of left hand. -Hand/wrist x-ray: Dorsal soft tissue swelling. Osseous structure is grossly intact (2) Cellulitis of left hand Status: Acute Plan: See plan above. Will like need po antibiotics upon discharge. (3) Sepsis Status: Resolved Plan: Patient met sepsis criteria on admission with WBC 15.4K, HR 104, and L hand as source of infection. Initial lactic acid of 2.4 -Discontinue IVFs as patient is tolerating po. -Follow cultures. Continue IV antibiotics (4) Diabetes Status: Chronic Plan: Impression: Patient reports chronic DM that was not well controlled. Repeat HbA1c during this admission is 10.4 -Accuchecks, SS low dose Novolog while inpatient -Consider ACEI for renal protection on discharge -Plan to discharge with Metformin 1000mg BID -Follow up with Dr. Naranjo as outpatient for DM management. (5) Hyperlipidemia Status: Chronic Plan: Impression: Patient with PMH of hyperlipidemia but currently not on statin. -Follow up with PCP. Will benefit from statin therapy. (6) DVT Prophylaxis Status: Acute Plan: -Pt refused Lovenox -Will give SCD's bilaterally; patient encouraged to ambulate (7) Nutrition, metabolism, and development symptoms Status: Acute Plan: Fluids: HLIV Nutrition: Diabetic diet Electrolytes: WNL (Tiana Fenton MD R3) Problem Qualifiers (1) Diabetes: Qualified Code: E11.8 - Type 2 diabetes mellitus with complication, without long-term current use of insulin (2) Hyperlipidemia: Qualified Code: E78.5 - Hyperlipidemia, unspecified hyperlipidemia type Tiana Fenton MD R3 Jan 09, 2017 14:01 Letitia Brownlee MD Jan 09, 2017 19:56
--- NOTE | 2017-01-09 14:20 | PD.ID.CON ---
History of Present Illness Service ID Consult Requested By / resident team Reason for Consult Evaluation and Mment of Hand cellulitis/abscess non responsive to oral antibiotics. Primary Care Physician No Primary Care Physician Diagnoses: History of Present Illness Ms. Rodriguez is a 61-year-old F with PMHx of DM2 DM, HLP presents with left hand swelling. Patient reports that she has had gradually increasing swelling/pain for the past 6 days since pricking the top of her hand on her cactus last Monday. Patient states that after several days, she noticed swelling/redness of her hand so sought medical evaluation at [facility]; she was prescribed antibiotics [per EMR, patient seen 01/05 and Bactrim and Keflex were given for suspected cellulitis. Patient given Tdap vaccination. Patient was then seen by Dr. Vallecillo 01/06/2017; completion of antibiotics was advised along with warm compresses; patient advised to return for further evaluation with worsening erythema or swelling. Patient states that since evaluation by she has had progressively increasing redness/swelling of her left hand in that it is more painful to touch. Patient denies fever/chills, dizziness, shortness of breath, nausea/vomiting, urinary abnormalities, or other problems. Patient reports injury from a cactus thorn. Did have gloves on and the thorn penetrated the glove. Patient evaluated in ED with initial HR 104. Initial labs demonstrative of leukocytosis (WBC 15.1) and lactic acid of 2.4. Patient given liter of NS bolus and started empirically on vancomycin and Zosyn. ID consulted for hand abscess in pt who failed oral antibiotics outpatient. Review of Systems Constitutional: DENIES: Diaphoretic episodes, Fatigue, Fever, Weight gain, Weight loss, Chills, Dizziness, Change in appetite, Night Sweats Endocrine: DENIES: Abnorml menstrual pattern, Heat/cold intolerance, Polydipsia , Polyuria, Polyphagia Eyes: DENIES: Blurred vision, Diplopia, Eye inflammation, Eye pain, Vision loss , Photosensitivity, Double Vision Ears, nose, mouth, throat: DENIES: Tinnitus, Hearing loss, Vertigo, Nasal discharge, Oral lesions, Throat pain, Hoarseness, Ear Pain, Running Nose, Epistaxis, Sinus Pain, Toothache, Odynophagia Respiratory: DENIES: Apneas, Cough, Snoring, Wheezing, Hemoptysis, Sputum production, Shortness of breath Cardiovascular: DENIES: Chest pain, Palpitations, Syncope, Dyspnea on Exertion , PND, Lower Extremity Edema, Orthopnea, Claudication Gastrointestinal: DENIES: Abdominal pain, Black stools, Bloody stools, Constipation, Diarrhea, Nausea, Vomiting, Difficulty Swallowing, Anorexia Genitourinary: DENIES: Abnormal vaginal bleeding, Dysmenorrhea, Dyspareunia, Sexual dysfunction, Urinary frequency, Urinary incontinence, Urgency, Hematuria , Dysuria, Nocturia, Vaginal discharge Musculoskeletal: COMPLAINS OF: Joint pain, Joint Swelling, DENIES: Muscle aches, Stiffness, Back pain, Neck pain Integumentary: COMPLAINS OF: Abnormal pigmentation, DENIES: Pruritus, Rash, Nail changes, Breast masses, Breast skin changes, Nipple discharge Hematologic/lymphatic: DENIES: Bruising, Lymphadenopathy Immunologic/allergic: DENIES: Eczema, Urticaria Neurologic: DENIES: Abnormal gait, Headache, Localized weakness, Paresthesias, Seizures, Speech Problems, Tremor, Poor Balance Psychiatric: DENIES: Anxiety, Confusion, Mood changes, Depression, Hallucinations, Agitation, Suicidal Ideation, Homicidal Ideation, Delusions Except as stated in HPI: all other systems reviewed are Neg Past Family Social History Allergies: Coded Allergies: No Known Allergies (Unverified , 01/06/17) Past Medical History T2 DM (A1c >8 2014) Hyperlipidemia Tuberculosis at 26 yrs-treated with isoniazid x1 year Past Surgical History section 1 approximately 30 years prior Reported Medications Reported Meds & Active Scripts Active Ibuprofen 600 Mg Tab 600 Mg PO Q8HR PRN Bactrim DS (Sulfamethoxazole-Trimethoprim) 800-160 Mg Tab 1 Tab PO BID 10 Days Keflex (Cephalexin) 500 Mg Cap 500 Mg PO Q6H 10 Days Active Ordered Medications Current Medications Medications (Trade) Dose Ordered Sig/Mario Route Start Time Stop Time Status Last Admin (NS Flush) 2 ml UNSCH PRN IV FLUSH 01/07/17 21:00 (NS Flush) 2 ml BID IV FLUSH 01/07/17 21:00 01/08/17 21:22 (Tylenol) 650 mg Q4H PRN PO 01/07/17 21:00 (Zofran Inj) 4 mg Q6H PRN IVP 01/07/17 21:00 (Lovenox Inj) 40 mg Q24H SQ 01/07/17 22:00 Naloxone HCl 0.4 mg 0.4 mg UNSCH PRN IV 01/07/17 21:00 (Vancomycin Inj/ NS 250 ml Inj) 257.5 ml @ 250 mls/hr Q12H IV 01/08/17 08:00 01/09/17 09:26 (D50w (Vial) Inj) 25 ml UNSCH PRN IV PUSH 01/07/17 22:00 (Glucagon Inj) 1 mg UNSCH PRN OTHER 01/07/17 22:00 (Apresoline) 10 mg Q8HR PRN PO 01/07/17 22:00 (Tylenol) 500 mg Q6H PRN PO 01/08/17 01:15 (Percocet 5-325 Mg) 1 tab Q6H PRN PO 01/08/17 01:15 (Benadryl) 25 mg Q6H PRN PO 01/08/17 09:00 Miscellaneous Information ALL NURSING DEPARTME... UNSCH PRN .XX 01/08/17 15:16 01/09/17 15:15 (Vancomycin Consult Pharmacy) 0 ml @ 0 mls/hr UNSCH OTHER 01/09/17 13:00 Miscellaneous Information SPECIFIC LAB TO BE DRAWN:VANCOMYCIN TROUGH DATE TO... ONCE ONCE .XX 01/10/17 07:45 01/10/17 07:46 Family History Father: , unknown history Mother: DM Sister: borderline DM Children: healthy Social [facility] Tobacco: denies Alcohol: once a month Drugs: denies Lives alone. Children live in different far away towns. Physical Exam Vital Signs Vital Signs Date Time Temp Pulse Resp B/P Pulse Ox O2 Delivery O2 Flow Rate FiO2 01/09/17 12:00 98.0 67 16 122/71 99 01/09/17 09:18 95 21 01/09/17 08:00 97.1 71 17 129/88 98 01/09/17 04:00 96.7 64 18 121/60 99 01/09/17 00:00 96.7 71 18 108/56 97 01/08/17 20:00 97.4 89 20 119/56 97 01/08/17 18:33 95 Nasal Cannula 2.00 01/08/17 16:30 97.7 81 16 116/58 95 01/08/17 15:45 78 16 122/76 96 Room Air 01/08/17 15:30 78 16 123/72 97 Room Air 01/08/17 15:15 97.9 94 16 128/77 99 Physical Exam GENERAL: This is a well-nourished, well-developed patient, in no apparent distress. SKIN: No rashes, ecchymoses or lesions. Cool and dry. HEAD: Atraumatic. Normocephalic. No temporal or scalp tenderness. EYES: Pupils equal round and reactive. Extraocular motions intact. No scleral icterus. No injection or drainage. ENT: Nose without bleeding, purulent drainage or septal hematoma. Throat without erythema, tonsillar hypertrophy or exudate. Uvula midline. Airway patent. NECK: Trachea midline. Supple, nontender, no meningeal signs. CARDIOVASCULAR: RRR RESPIRATORY: Clear to auscultation. Breath sounds equal bilaterally. No wheezes , rales, or rhonchi. GASTROINTESTINAL: Abdomen soft, non-tender, nondistended. No hepato-splenomegaly , or palpable masses. No guarding. MUSCULOSKELETAL: Left hand with erythema around surgical scar. Appears erythema has improved, had a line of demarcation for comparison. Able to flex all fingers without pain or restriction. NEUROLOGICAL: Awake and alert. Grossly non focal. Psych: cooperative IV line sites with no e.o infection. Laboratory Laboratory Tests Test 01/09/17 04:59 White Blood Count 9.9 Red Blood Count 4.33 Hemoglobin 12.5 Hematocrit 38.0 Mean Corpuscular Volume 87.8 Mean Corpuscular Hemoglobin 28.8 Mean Corpuscular Hemoglobin 32.8 Concent Red Cell Distribution Width 13.3 Platelet Count 272 Mean Platelet Volume 7.8 Neutrophils (%) (Auto) 81.4 Lymphocytes (%) (Auto) 11.5 Monocytes (%) (Auto) 6.8 Eosinophils (%) (Auto) 0.1 Basophils (%) (Auto) 0.2 Neutrophils # (Auto) 8.1 Lymphocytes # (Auto) 1.1 Monocytes # (Auto) 0.7 Eosinophils # (Auto) 0.0 Basophils # (Auto) 0.0 CBC Comment DIFF FINAL Differential Comment Sodium Level 137 Potassium Level 4.2 Chloride Level 104 Carbon Dioxide Level 20.3 Anion Gap 13 Blood Urea Nitrogen 9 Creatinine 0.49 Estimat Glomerular Filtration 128 Rate Random Glucose 157 Calcium Level 8.5 Date/Time Procedure Status Source Growth 01/08/17 14:23 Gram Stain - Final Resulted Abscess Hand 01/08/17 14:23 Wound Culture Resulted Abscess Hand Pending 01/08/17 14:23 Fungal Smear Received Abscess Hand Pending 01/08/17 14:23 Fungal Culture Received Abscess Hand Pending 01/08/17 14:23 Acid Fast Stain Received Abscess Hand Pending 01/08/17 14:23 Mycobacterial Culture Received Abscess Hand Pending 01/07/17 18:35 Aerobic Blood Culture - Preliminary Resulted Blood Peripheral NO GROWTH IN 2 DAYS 01/07/17 18:35 Anaerobic Blood Culture - Preliminary Resulted Blood Peripheral NO GROWTH IN 2 DAYS Result Diagram: 01/09/17 0459 01/09/17 0459 Imaging Last Impressions Wrist X-Ray 01/08/17 0000 Signed Impressions: Service Date/Time: Sunday, January 08, 2017 03:36 - CONCLUSION: There is posterior hand and wrist soft tissue swelling. No acute osseous abnormality is identified. Charan Geller MD Soft Tissue Ultrasound 01/07/17 2300 Signed Impressions: Service Date/Time: Saturday, January 07, 2017 22:49 - CONCLUSION: Complex appearing fluid collection, as above, along the posterior superficial aspect of the left hand. Charan Geller MD Hand X-Ray 01/07/17 0000 Signed Impressions: Service Date/Time: Saturday, January 07, 2017 18:28 - CONCLUSION: Dorsal soft tissue swelling. The osseous structures are grossly intact. Federico Cardenas MD Assessment and Plan Assessment and Plan Left Hand cellulitis/abscess not responsive to oral Keflex and Bactrim as outpatient. MRSA in culture isolated. At risk for sporotrichosis and atypical (AFB and Fungal infection) due to [place] injury. Important to follow cultures AFB and Fungal till negative. Will need ID follow up on DC. H/o penetrating injury to a thorn from cactus. Had gloves on but thorn went through the glove. Diabetes mellitus uncontrolled. ? compliance vs infection related hyperglycemia. A1C high. Recs: Continue Vanco IV (target 10-15) for hand infection. Follow cultures Contact isolation. Follow clinically. Check LFTs and CRP. Recommend outpatient PCP follow up Recommend [employer] consult. Recommend LOYD inhibitor for renal injury prevention Counseled to inspect arms and legs on regular basis. Counseled to get outpt Opthalm follow up to r/o retinopathy. Will need ID follow up on discharge with Dr.Reba Polanco. alex patient and . Archana Aguilar MD Jan 09, 2017 14:20
[2017-01-09 17:20] LABS: INDIRECT BILIRUBIN 0.4 MG/DL (0.0-0.8); TOTAL BILIRUBIN ADULT 0.5 MG/DL (0.2-1.0)
--- NOTE | 2017-01-09 20:51 | PD.ORT.PN ---
Subjective Subjective Remarks Patient reports pain controlled left hand. Denies paresthesias. Objective Vitals Vital Signs Date Time Temp Pulse Resp B/P Pulse Ox O2 Delivery O2 Flow Rate FiO2 01/09/17 16:00 98.2 85 17 158/68 98 01/09/17 12:00 98.0 67 16 122/71 99 01/09/17 09:18 95 21 01/09/17 08:00 97.1 71 17 129/88 98 01/09/17 04:00 96.7 64 18 121/60 99 01/09/17 00:00 96.7 71 18 108/56 97 I/O 01/08/17 01/08/17 01/08/17 01/09/17 01/09/17 01/09/17 07:00 15:00 23:00 07:00 15:00 23:00 Intake Total 100 ml 530 ml 1737 ml 1200 ml Output Total 800 ml 500 ml Balance 100 ml 530 ml 937 ml 700 ml Intake Oral 480 ml 320 ml 1200 ml IV Total 100 ml 50 ml 1417 ml Output Urine Total 800 ml 500 ml # Voids 2 # Bowel Movements 0 0 0 Result Diagram: 01/09/17 0459 01/09/17 0459 Imaging Last 24 hours Impressions Wrist X-Ray 01/08/17 0000 Signed Impressions: Service Date/Time: Sunday, January 08, 2017 03:36 - CONCLUSION: There is posterior hand and wrist soft tissue swelling. No acute osseous abnormality is identified. Charan Geller MD Soft Tissue Ultrasound 01/07/17 2300 Signed Impressions: Service Date/Time: Saturday, January 07, 2017 22:49 - CONCLUSION: Complex appearing fluid collection, as above, along the posterior superficial aspect of the left hand. 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
[2017-01-09] MEDS: ENOXAPARIN SODIUM 40 MG/0.4 ML SYRINGE SQ SCH (21:16)
[2017-01-10] VITALS: BP 111/61; PULSE 68; RESP 17; TEMP 97.6; O2SAT 97
[2017-01-10] MEDS: INSULIN ASPART SUPPLEMENTAL SCALE SQ SCH ×4 (06:22→20:57)
[2017-01-10] MEDS ORDERED: PHARMACY ORDERED LAB ONE (07:45)
[2017-01-10 07:57] VITALS: BP 167/70; PULSE 69; RESP 17; TEMP 98.1; O2SAT 97
[2017-01-10] MEDS: VANCOMYCIN INJ 750 MG in SODIUM CHLOR 0.9% 250 ML INJ 250 ML IV SCH (09:37)
[2017-01-10] MEDS: SODIUM CHLORIDE 0.9% FLUSH 10 ML FLUSH IV FLUSH SCH ×2 (09:37→20:56)
[2017-01-10 12:00] VITALS: BP 160/70; PULSE 76; RESP 16; TEMP 97.6; O2SAT 97
--- NOTE | 2017-01-10 13:00 | HHI.IDPN ---
Subjective Subjective Remarks is a 61 y/o female with right hand cellulitis and abscess. Overnight events reviewed No fever no rash No diarrhea Antibiotics Vanco IV Lines Line sites with no e.o infection Past Medical History DM2 uncontrolled. Allergies: Coded Allergies: *MDRO Multi-Drug Resistant Organism (Verified Adverse Reaction, Unknown, ) MRSA (hand)-01/08/17 Objective . Vital Signs Date Time Temp Pulse Resp B/P Pulse Ox O2 Delivery O2 Flow Rate FiO2 01/10/17 12:00 97.6 76 16 160/70 97 01/10/17 07:57 98.1 69 17 167/70 97 01/10/17 00:00 97.6 68 17 111/61 97 01/09/17 20:00 98.2 66 17 128/60 97 01/09/17 16:00 98.2 85 17 158/68 98 01/09/17 01/09/17 01/10/17 15:00 23:00 07:00 Intake Total 1200 ml 240 ml 240 ml Output Total 500 ml 1850 ml 1000 ml Balance 700 ml -1610 ml -760 ml Intake Oral 1200 ml 240 ml 240 ml Output Urine Total 500 ml 1850 ml 1000 ml # Bowel Movements 0 . Laboratory Tests Test 01/09/17 04:59 White Blood Count 9.9 TH/MM3 Red Blood Count 4.33 MIL/MM3 Hemoglobin 12.5 GM/DL Hematocrit 38.0 % Mean Corpuscular Volume 87.8 FL Mean Corpuscular Hemoglobin 28.8 PG Mean Corpuscular Hemoglobin 32.8 % Concent Red Cell Distribution Width 13.3 % Platelet Count 272 TH/MM3 Mean Platelet Volume 7.8 FL Neutrophils (%) (Auto) 81.4 % Lymphocytes (%) (Auto) 11.5 % Monocytes (%) (Auto) 6.8 % Eosinophils (%) (Auto) 0.1 % Basophils (%) (Auto) 0.2 % Neutrophils # (Auto) 8.1 TH/MM3 Lymphocytes # (Auto) 1.1 TH/MM3 Monocytes # (Auto) 0.7 TH/MM3 Eosinophils # (Auto) 0.0 TH/MM3 Basophils # (Auto) 0.0 TH/MM3 CBC Comment DIFF FINAL Differential Comment Laboratory Tests Test 01/09/17 01/10/17 04:59 05:07 Sodium Level 137 MEQ/L Potassium Level 4.2 MEQ/L Chloride Level 104 MEQ/L Carbon Dioxide Level 20.3 MEQ/L Anion Gap 13 MEQ/L Blood Urea Nitrogen 9 MG/DL Creatinine 0.49 MG/DL 0.39 MG/DL Estimat Glomerular Filtration 128 ML/MIN 166 ML/MIN Rate Random Glucose 157 MG/DL Calcium Level 8.5 MG/DL Total Bilirubin 0.5 MG/DL Direct Bilirubin 0.1 MG/DL Indirect Bilirubin 0.4 MG/DL Aspartate Amino Transf 18 U/L (AST/SGOT) Alanine Aminotransferase 31 U/L (ALT/SGPT) Alkaline Phosphatase 76 U/L C-Reactive Protein 3.60 MG/DL Total Protein 5.9 GM/DL Albumin 2.7 GM/DL Microbiology Date/Time Procedure Status Source Growth 01/07/17 18:30 Aerobic Blood Culture - Preliminary Resulted Blood Peripheral NO GROWTH IN 3 DAYS 01/07/17 18:30 Anaerobic Blood Culture - Preliminary Resulted Blood Peripheral NO GROWTH IN 3 DAYS 01/07/17 18:35 Aerobic Blood Culture - Preliminary Resulted Blood Peripheral NO GROWTH IN 3 DAYS 01/07/17 18:35 Anaerobic Blood Culture - Preliminary Resulted Blood Peripheral NO GROWTH IN 3 DAYS 01/08/17 13:10 Gram Stain - Final Complete Wound Hand 01/08/17 13:10 Wound Culture - Final Complete S. Aureus Mrsa 01/08/17 13:10 Acid Fast Stain Received Wound Hand Pending 01/08/17 13:10 Mycobacterial Culture Received Wound Hand Pending 01/08/17 13:10 Fungal Smear Worksheet Wound Hand Pending 01/08/17 13:10 Fungal Culture Worksheet Wound Hand Pending 01/08/17 14:23 Gram Stain - Final Resulted Abscess Hand 01/08/17 14:23 Wound Culture - Preliminary Resulted S. Aureus Mrsa 01/08/17 14:23 Acid Fast Stain Worksheet Abscess Hand Pending 01/08/17 14:23 Mycobacterial Culture Worksheet Abscess Hand Pending 01/08/17 14:23 Fungal Smear Worksheet Abscess Hand Pending 01/08/17 14:23 Fungal Culture Worksheet Abscess Hand Pending Imaging Last Impressions Wrist X-Ray 01/08/17 0000 Signed Impressions: Service Date/Time: Sunday, January 08, 2017 03:36 - CONCLUSION: There is posterior hand and wrist soft tissue swelling. No acute osseous abnormality is identified. Charan Geller MD Soft Tissue Ultrasound 01/07/17 2300 Signed Impressions: Service Date/Time: Saturday, January 07, 2017 22:49 - CONCLUSION: Complex appearing fluid collection, as above, along the posterior superficial aspect of the left hand. Charan Geller MD Hand X-Ray 01/07/17 0000 Signed Impressions: Service Date/Time: Saturday, January 07, 2017 18:28 - CONCLUSION: Dorsal soft tissue swelling. The osseous structures are grossly intact. Federico Cardenas MD Assessment & Plan Remarks Left Hand cellulitis/abscess not responsive to oral Keflex and Bactrim as outpatient. MRSA in culture isolated. At risk for sporotrichosis and atypical (AFB and Fungal infection) due to [place] injury. Important to follow cultures AFB and Fungal till negative. Will need ID follow up on DC. H/o penetrating injury to a thorn from cactus. Had gloves on but thorn went through the glove. Diabetes mellitus uncontrolled. ? compliance vs infection related hyperglycemia. A1C high. Recs: Continue Vanco IV (target 10-15) for hand infection. Follow cultures Contact isolation. Follow clinically. Recommend outpatient PCP follow up Will need ID follow up on discharge with Dr.Reba Polanco. jjw patient and and primary team PICC line consult in am Discharge in am on Vanco IV (target 10-15). Will sign off please call back if any change in clinical condition or questions. Archana Aguilar MD Jan 10, 2017 13:00 PICC in am alex pt and Archana Morgan MD Jan 10, 2017 13:00
[2017-01-10 16:00] VITALS: BP 156/72; PULSE 87; RESP 17; TEMP 98.6; O2SAT 96
--- NOTE | 2017-01-10 16:24 | HHI.FPPN ---
Subjective Remarks No acute events overnight. AFVSS. Feeling well. Minimal hand pain, good movement and feeling. No CP/SOB. (Ashish Tovar MD R1) Objective Vitals Vital Signs Date Time Temp Pulse Resp B/P Pulse Ox O2 Delivery O2 Flow Rate FiO2 01/10/17 12:00 97.6 76 16 160/70 97 01/10/17 09:15 21 01/10/17 07:57 98.1 69 17 167/70 97 01/10/17 00:00 97.6 68 17 111/61 97 01/09/17 20:00 98.2 66 17 128/60 97 I/O 01/09/17 01/09/17 01/09/17 01/10/17 01/10/17 01/10/17 07:00 15:00 23:00 07:00 15:00 23:00 Intake Total 1737 ml 1200 ml 240 ml 240 ml 1689 ml Output Total 800 ml 500 ml 1850 ml 1000 ml 1500 ml Balance 937 ml 700 ml -1610 ml -760 ml 189 ml Intake Oral 320 ml 1200 ml 240 ml 240 ml 1440 ml IV Total 1417 ml 249 ml Output Urine Total 800 ml 500 ml 1850 ml 1000 ml 1500 ml # Bowel Movements 0 0 1 (Ashish Tovar MD R1) Result Diagram: 01/09/17 0459 01/10/17 0507 Objective Remarks GENERAL: Pleasant female in no acute distress. Lymph: No left axillary lymphadenopathy CARDIOVASCULAR: Regular rate and rhythm without murmurs. <2 sec capillary refills in left fingertips. RESPIRATORY: Normal respiratory rate. Lungs clear to auscultation bilaterally. GASTROINTESTINAL: Abdomen soft, nondistended, nontender. Bowel sounds normal. NEURO/PSYCH: Awake, alert, and oriented. Cranial nerves grossly normal. Grossly normal motor and sensory function; normal sensation in L distal fingers SKIN: Left hand with dressing in place. No surrounding erythema or edema in UEs. MUSCULOSKELETAL: No lower extremity swelling. L hand - Able to wiggle fingers ( Ashish Tovar MD R1) A/P Assessment and Plan Ms. Rodriguez is a 61 yo F who was admitted for left hand cellulitis and abscess s/p I &D on 01/08/17. Doing well postoperatively. Wound culture pending; currently stable on IV Vancomycin. Discharge Planning Discharge pending hand surgery & ID clearance; likely on 01/11 (Ashish Tovar MD R1) Attending Attestation Patient seen and examined, discussed with resident team. I agree with assessment and management as documented and discussed with me. Pt reports pain in hand is improving. She is anxious to leave the hospital. She understands she has MRSA. Pt seen with Dr Aguilar, who discussed with patient that prolonged antibiotic course is needed because of involvement in tendons of her hand. For PICC line today/tomorrow. (Letitia Brownlee MD) Problem List: (1) Abscess of hand, left Status: Acute Plan: Improving on Vancomycin (01/07/17-). Leukocytosis and lactic acidosis resolved. ESR WNL Wound Cx growing MRSA sensitive to Bactrim, [place] Hand surgery consulted, appreciate recommendations: She is S/P I&D on 01/08. 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 -Hand/wrist x-ray: Dorsal soft tissue swelling. Osseous structure is grossly intact (2) Cellulitis of left hand Status: Acute Plan: See plan above. (3) Sepsis Status: Resolved Plan: Patient met sepsis criteria on admission with WBC 15.4K, HR 104, and L hand as source of infection. Initial lactic acid of 2.4 -Discontinue IVFs as patient is tolerating po. -Follow cultures. Continue IV antibiotics (4) Diabetes Status: Chronic Plan: Impression: Patient reports chronic DM that was not well controlled. Repeat HbA1c during this admission is 10.4 -Accuchecks, SS low dose Novolog while inpatient -Consider ACEI for renal protection on discharge -Plan to discharge with Metformin 1000mg BID -Follow up with Dr. Naranjo as outpatient for DM management. (5) Hyperlipidemia Status: Chronic Plan: Impression: Patient with PMH of hyperlipidemia but currently not on statin. -Follow up with PCP. Will benefit from statin therapy. (6) DVT Prophylaxis Status: Acute Plan: -Pt refused Lovenox -Will give SCD's bilaterally; patient encouraged to ambulate (7) Nutrition, metabolism, and development symptoms Status: Acute Plan: Fluids: HLIV Nutrition: Diabetic diet Electrolytes: WNL sdw Dr. Ty Brownlee (Ashish Tovar MD R1) Problem Qualifiers (1) Diabetes: Qualified Code: E11.8 - Type 2 diabetes mellitus with complication, without long-term current use of insulin (2) Hyperlipidemia: Qualified Code: E78.5 - Hyperlipidemia, unspecified hyperlipidemia type Ashish Tovar MD R1 Jan 10, 2017 16:24 Letitia Brownlee MD Jan 10, 2017 19:41
--- NOTE | 2017-01-10 16:51 | HHI.FF ---
cc: Brooke Polanco MD Infusion Therapy Location of Infusion Therapy: [facility] IV Infusion Order Patient Information Appointment Date: Jan 11, 2017 Patient Weight 51.9 kg Diagnosis: Diagnosis MRSA left hand cellulitis and abscess s/p I&D. MRSA tenosynovitis of left hand. DM2 uncontrolled. Coded Allergies: *MDRO Multi-Drug Resistant Organism (Verified Adverse Reaction, Unknown, ) MRSA (hand)-01/08/17 Administer Medication Vancomycin 1 gram IV q 12 hours Start Treatment: Jan 10, 2017 Stop Treatment: February 07, 2017 Additional Information Venous access: PICC Line Additional Instructions [x] Peripheral flush and dressing changes per protocol [x] Implanted port and central groundman/lineman: * Implanted port: 10 ml Normal Saline followed by 5 ml Heparin 100 units/ml Heparin flush after each use and monthly to maintain. [] May leave port accessed during therapy. [] May leave peripheral site accessed for duration of therapy. [x] If patient has SOB or respiratory distress, check oxygen saturation. If less than 90% or clinical signs of respiratory distress, administer oxygen at 2 L/min. via nasal cannula and notify physician. [x] Anaphylaxis/Reaction orders: * Stop infusion. * Keep IV line open with saline flush. * Notify physician. * Monitor vital signs every 15 minutes until symptoms resolve. * Check Oxygen saturation; Oxygen at 2 L/min. via nasal cannula if less than 90% or clinical signs of respiratory distress. * Administer diphenhydramine (Benadryl) 25 mg IV STAT, (unless patient has received as pre-med). May repeat once, if necessary. * Solu-Cortef 250 mg IVP over 30-60 seconds, use 100 mg vials for each dissolution. * Epinephrine (1mg/1 ml) 0.3 mg subcutaneously or IVP now with any signs of respiratory distress. * Check with physician for new additional pre-med orders if patient is re- challenged or re-treated. [x] May remove PICC line when treatment complete, after confirming with Physician. [x] If the patient is admitted to the hospital, the ED, or transferred via [facility] , complete transfer form including medication reconciliation order sheet. Laboratory Tests Weekly Labs: CBC w/diff, Creatinine, CRP, LFT's (Hepatic function test), Vancomycin Trough Additional Information Please draw weekly labs on every Monday, Call with abnormals, change in clinical condition or problems to: Dr.Reba Polanco or or covering ID Physician Follow up appt: Patient to schedule follow up appt with Dr.Reba Polanco within 10 days post discharge. Follow up with PCP Follow up with Hand surgeon. Follow up with other MDs as planned. Counseling: Counseled about medication side effects Counseled about PICC line care and hand hygiene. Archana Aguilar MD Jan 10, 2017 16:51
[2017-01-10] MEDS ORDERED: EPIN1INJ21 IV PUSH (16:52)
[2017-01-10] MEDS ORDERED: SOLU250I IV PUSH (16:52)
[2017-01-10] MEDS ORDERED: EPIN1INJ21 SQ (16:52)
[2017-01-10] MEDS ORDERED: VANC1000P IV (16:52)
--- NOTE | 2017-01-10 18:01 | PD.ORT.PN ---
Subjective Subjective Remarks Patient reports pain controlled left hand. Denies paresthesias. Objective Vitals Vital Signs Date Time Temp Pulse Resp B/P Pulse Ox O2 Delivery O2 Flow Rate FiO2 01/10/17 16:00 98.6 87 17 156/72 96 01/10/17 12:00 97.6 76 16 160/70 97 01/10/17 09:15 21 01/10/17 07:57 98.1 69 17 167/70 97 01/10/17 00:00 97.6 68 17 111/61 97 01/09/17 20:00 98.2 66 17 128/60 97 I/O 01/09/17 01/09/17 01/09/17 01/10/17 01/10/17 01/10/17 07:00 15:00 23:00 07:00 15:00 23:00 Intake Total 1737 ml 1200 ml 240 ml 240 ml 1689 ml Output Total 800 ml 500 ml 1850 ml 1000 ml 1500 ml Balance 937 ml 700 ml -1610 ml -760 ml 189 ml Intake Oral 320 ml 1200 ml 240 ml 240 ml 1440 ml IV Total 1417 ml 249 ml Output Urine Total 800 ml 500 ml 1850 ml 1000 ml 1500 ml # Bowel Movements 0 0 1 Result Diagram: 01/09/17 0459 01/10/17 0507 Imaging Last 24 hours Impressions Wrist X-Ray 01/08/17 0000 Signed Impressions: Service Date/Time: Sunday, January 08, 2017 03:36 - CONCLUSION: There is posterior hand and wrist soft tissue swelling. No acute osseous abnormality is identified. Charan Geller MD Soft Tissue Ultrasound 01/07/17 2300 Signed Impressions: Service Date/Time: Saturday, January 07, 2017 22:49 - CONCLUSION: Complex appearing fluid collection, as above, along the posterior superficial aspect of the left hand. Charan Geller MD Objective Remarks Dressing changed, serous drainage when packing pulled out, packing replaced, mild blistering of skin, acceptable ROM left finger extensors/flexors, sitlt m/u /r, <2 sec capillary refill Assessment & Plan Assessment and Plan POD2 s/p I&D left hand dorsal abscess after cactus thorn, placement of packing -Follow cultures +MRSA, per ID, d/c home with IV through PICC and then followup with Dr Ceron -Packing changed, will continue daily dressing changes, home health to do daily dressing change and packing change if possible -Appreciate medical management of DM as HgA1C 10.4 -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
[2017-01-10 20:00] VITALS: BP 156/72; PULSE 68; RESP 17; TEMP 98.1; O2SAT 97
[2017-01-10] MEDS: VANCOMYCIN 1,000 MG/NS 250 ML IV SCH ×2 (20:00)
[2017-01-10] MEDS: ENOXAPARIN SODIUM 40 MG/0.4 ML SYRINGE SQ SCH (20:59)
[2017-01-10 21:20] VITALS: O2SAT 98
[2017-01-11] VITALS: BP 137/67; PULSE 82; RESP 17; TEMP 97.2; O2SAT 97
[2017-01-11] MEDS: INSULIN ASPART SUPPLEMENTAL SCALE SQ SCH ×3 (06:14→16:00)
--- NOTE | 2017-01-11 06:33 | HHI.FF ---
Face to Face Verification Diagnosis: (1) Abscess of hand, left (2) Cellulitis of left hand (3) Diabetes Home Health Nursing Order: IV medication administration I have seen patient Marii Rodriguez on 01/11/17. My clinical findings support the need for the requested home health care services because: Injectable med education/admin I certify that my clinical findings support that this patient is homebound because: Need for psychosocial assistance Ashish Tovar MD R1 Jan 11, 2017 06:33
[2017-01-11] MEDS ORDERED: METF500T PO (06:37)
[2017-01-11] MEDS ORDERED: LISI-519 PO (06:40)
[2017-01-11 08:00] VITALS: BP 148/70; PULSE 70; RESP 16; TEMP 96.9; O2SAT 99
[2017-01-11] MEDS: SODIUM CHLORIDE 0.9% FLUSH 10 ML FLUSH IV FLUSH SCH (08:01)
[2017-01-11] MEDS: VANCOMYCIN 1,000 MG/NS 250 ML IV SCH ×2 (08:01)
[2017-01-11 08:17] VITALS: O2SAT 97
--- NOTE | 2017-01-11 08:27 | HHI.FF ---
Face to Face Verification Diagnosis: (1) Abscess of hand, left (2) Cellulitis of left hand (3) Diabetes Home Health Nursing Order: Wound care and dressing changes I have seen patient Mairi Rodriguez on 01/11/17. My clinical findings support the need for the requested home health care services because: Injectable med education/admin I certify that my clinical findings support that this patient is homebound because: Need for psychosocial assistance Ashish Tovar MD R1 Jan 11, 2017 8:27 am
--- NOTE | 2017-01-11 08:34 | HHI.FPPN ---
Subjective Remarks POD 3 after incision and drainage of abscess of the posterior hand. Doing well this morning. No fevers and leukocytosis resolved. She is resting in bed this morning. She reports minimal pain in the hand. She feels some tingling in her fingers. She is able to move all of her fingers. She reports normal sensation in her fingers. No nausea or vomiting. (Mauri Crawford MD R2) Objective Vitals Vital Signs Date Time Temp Pulse Resp B/P Pulse Ox O2 Delivery O2 Flow Rate FiO2 01/11/17 08:17 97 21 01/11/17 00:00 97.2 82 17 137/67 97 01/10/17 21:20 98 21 01/10/17 20:00 98.1 68 17 156/72 97 01/10/17 16:00 98.6 87 17 156/72 96 01/10/17 12:00 97.6 76 16 160/70 97 01/10/17 09:15 21 I/O 01/10/17 01/10/17 01/10/17 01/11/17 01/11/17 01/11/17 07:00 15:00 23:00 07:00 15:00 23:00 Intake Total 240 ml 1689 ml 240 ml 490 ml Output Total 1000 ml 1500 ml 2500 ml 800 ml Balance -760 ml 189 ml -2260 ml -310 ml Intake Oral 240 ml 1440 ml 240 ml 240 ml IV Total 249 ml 0 ml 250 ml Output Urine Total 1000 ml 1500 ml 2500 ml 800 ml # Bowel Movements 1 (Mauri Crawford MD R2) Result Diagram: 01/09/17 0459 01/10/17 0507 Objective Remarks GENERAL: sitting up in bed, comfortable Lymph: No axillary lymphadenopathy CARDIOVASCULAR: Regular rate and rhythm without murmurs. <2 sec capillary refills in left fingertips. RESPIRATORY: Normal respiratory rate. Lungs clear to auscultation bilaterally. GASTROINTESTINAL: Abdomen soft, nondistended, nontender. Bowel sounds normal. NEURO/PSYCH: Awake, alert, and oriented. Cranial nerves grossly normal. Normal motor and sensory function of left hand/fingers SKIN: Left hand with dressing in place. No surrounding erythema or edema in UEs. MUSCULOSKELETAL: No lower extremity swelling. L hand - Able to move digits. ( Mauri Crawford MD R2) A/P Assessment and Plan 61 yo female admitted for left hand cellulitis and abscess s/p I&D on 01/08/17. She will receive 3 weeks of IV Vancomycin at home via a PICC line. Discharge Planning Discharge pending insertion of PICC line and establishment of home health care for IV antibiotics. (Mauri Crawford MD R2) Attending Attestation Patient seen and examined, discussed with resident team. I agree with assessment and management as documented and discussed with me. Pt seen this morning. She feels her hand is a little more sore this morning, but she has been doing exercises of her fingers. Anticipate discharge today, once she has PICC line and home abx are arranged. ( Letitia Brownlee MD) Problem List: (1) Abscess of hand, left Status: Acute Plan: Presented with abscess of the left dorsal hand after being pricked by a cactus thorn. U/S showed complex fluid collection along posterior superficial aspect of the left hand. Failed outpatient treatment with Bactrim and Clindamycin. She is POD 3 after I&D of the abscess. Cultures positive for MRSA. Blood cultures show no growth. - Will receive 3 weeks of IV Vancomycin through PICC line at home. Setting up home health services. - Vancomycin target trough level of 10 to 15. - Will follow with orthopedic surgery, appt is on . - Will also follow up with infectious disease with Dr. Brooke Polanco - Will need daily dressing and packing changes. - Occupational therapy for range of motion exercises. - Will follow cultures from wound, particularly fungal and mycobacterial cultures. (2) Diabetes Status: Chronic Plan: Has type 2 diabetes that is not well controlled. HbA1c during this admission is 10.4 -Accuchecks, SS low dose Novolog while inpatient -Will start low dose edwin inhibitor on discharge for renal protection -Will start metformin on discharge for diabetes control -Follow up with Dr. Naranjo as outpatient for DM management. (3) Hyperlipidemia Status: Chronic Plan: Patient with PMH of hyperlipidemia - Follow up with Dr. Naranjo, PCP (4) DVT Prophylaxis Status: Acute Plan: - SCD's bilaterally; patient encouraged to ambulate (5) Nutrition, metabolism, and development symptoms Status: Acute Plan: Fluids: HLIV Nutrition: Diabetic diet sdw Dr. La Brownlee (Mauri Crawford MD R2) Problem Qualifiers (1) Hyperlipidemia: Qualified Code: E78.5 - Hyperlipidemia, unspecified hyperlipidemia type Mauri Crawfodr MD R2 Jan 11, 2017 08:34 Letitia Brownlee MD Jan 11, 2017 16:50
--- NOTE | 2017-01-11 09:35 | HHI.FF ---
Face to Face Verification Diagnosis: (1) Abscess of hand, left (2) Tenosynovitis of finger and hand (3) Diabetes (4) Cellulitis of left hand Occupational Therapy Order: Evaluate and Treat Home Health Nursing Order: Diabetic education Wound care and dressing changes (Wound assessment with daily dressing changes) IV medication administration I have seen patient Marii Rodriguez on 01/11/17. My clinical findings support the need for the requested home health care services because: Injectable med education/admin I certify that my clinical findings support that this patient is homebound because: Need for psychosocial assistance Ashish Tovar MD R1 Jan 11, 2017 09:35
--- NOTE | 2017-01-11 09:53 | HHI.DS ---
Discharge Summary Admission Date Jan 08, 2017 at 9:01 pm Discharge Date: Jan 11, 2017 Admitting Diagnosis cellulitis of left hand; failed outpatient treatment (1) Abscess of hand, left Diagnosis: Principal Plan: Presented with abscess of the left dorsal hand after being pricked by a cactus thorn. U/S showed complex fluid collection along posterior superficial aspect of the left hand. Failed outpatient treatment with Bactrim and Clindamycin. She is POD 3 after I&D of the abscess. Cultures positive for MRSA. Blood cultures show no growth. - Will receive 3 weeks of IV Vancomycin through PICC line at home. Setting up home health services. - Vancomycin target trough level of 10 to 15. - Will follow with orthopedic surgery, appt is on . - Will also follow up with infectious disease with Dr. Brooke Polanco - Will need daily dressing and packing changes. - Occupational therapy for range of motion exercises. - Will follow cultures from wound, particularly fungal and mycobacterial cultures. (2) Diabetes Diagnosis: Secondary Plan: Has type 2 diabetes that is not well controlled. HbA1c during this admission is 10.4 -GURINDER Junior low dose Novolog while inpatient -Will start low dose edwin inhibitor on discharge for renal protection -Will start metformin on discharge for diabetes control -Follow up with Dr. Naranjo as outpatient for DM management. (3) Hyperlipidemia Diagnosis: Secondary Plan: Patient with PMH of hyperlipidemia - Follow up with Dr. Naranjo, PCP [facility] - Dr. Teresa ID - Dr. Aguilar Procedures Drainage of hand abscess - 01/08/17 Brief History Ms. Rodriguez is a 61-year-old F with PMH of T2 DM, HLP presents with left hand swelling. Patient reports that she has had gradually increasing swelling/pain for the past 6 days since pricking the top of her hand on her cactus last Monday. Patient states that after several days, she noticed swelling/redness of her hand so sought medical evaluation at [facility]; she was prescribed antibiotics [per EMR, patient seen 01/05 and Bactrim and Keflex were given for suspected cellulitis. Patient given Tdap vaccination. Patient was then seen by Dr. Vallecillo 01/06/2017; completion of antibiotics was advised along with warm compresses; patient advised to return for further evaluation with worsening erythema or swelling. Patient states that since evaluation by , she has had progressively increasing redness/swelling of her left hand in that it is more painful to touch. She also reports increased spread of the erythema up her arm despite abx. Patient denies fever/chills, dizziness, shortness of breath , nausea/vomiting, urinary abnormalities, or other problems. Interval history: Patient evaluated in ED: Patient with initial HR 104. Initial labs demonstrative of leukocytosis (WBC 15.1) and lactic acid of 2.4. Patient given liter of NS bolus and started empirically on vancomycin and Zosyn. She is having some fluctuance over the dorsum of her hand and we discussed having any abscess drained as that speeds up the healing process. She is reluctant to have any procedures but I explained that if she has an abscess getting it drained is the fastest way to get better. She feels well otherwise and wants to go home as soon as she can. CBC/BMP: 01/09/17 0459 01/10/17 0507 Significant Findings Laboratory Tests Test 01/09/17 01/10/17 04:59 05:07 Neutrophils (%) (Auto) 81.4 % (16.0-70.0) Neutrophils # (Auto) 8.1 TH/MM3 (1.8-7.7) Carbon Dioxide Level 20.3 MEQ/L (21.0-32.0) Creatinine 0.49 MG/DL 0.39 MG/DL (0.50-1.00) (0.50-1.00) Random Glucose 157 MG/DL (74-106) C-Reactive Protein 3.60 MG/DL (0.00-0.30) Total Protein 5.9 GM/DL (6.4-8.2) Albumin 2.7 GM/DL (3.4-5.0) Imaging Last Impressions Wrist X-Ray 01/08/17 0000 Signed Impressions: Service Date/Time: Sunday, January 08, 2017 03:36 - CONCLUSION: There is posterior hand and wrist soft tissue swelling. No acute osseous abnormality is identified. Charan Geller MD Soft Tissue Ultrasound 01/07/17 2300 Signed Impressions: Service Date/Time: Saturday, January 07, 2017 22:49 - CONCLUSION: Complex appearing fluid collection, as above, along the posterior superficial aspect of the left hand. Charan Geller MD Hand X-Ray 01/07/17 0000 Signed Impressions: Service Date/Time: Saturday, January 07, 2017 18:28 - CONCLUSION: Dorsal soft tissue swelling. The osseous structures are grossly intact. Federico Cardenas MD PE at Discharge GENERAL: sitting up in bed, comfortable Lymph: No axillary lymphadenopathy CARDIOVASCULAR: Regular rate and rhythm without murmurs. <2 sec capillary refills in left fingertips. RESPIRATORY: Normal respiratory rate. Lungs clear to auscultation bilaterally. GASTROINTESTINAL: Abdomen soft, nondistended, nontender. Bowel sounds normal. NEURO/PSYCH: Awake, alert, and oriented. Cranial nerves grossly normal. Normal motor and sensory function of left hand/fingers SKIN: Left hand with dressing in place. No surrounding erythema or edema in UEs. MUSCULOSKELETAL: No lower extremity swelling. L hand - Able to move digits. Hospital Course Admitted due to infection of dorsum L hand not improved on outpatient treatment with Keflex or Bactrim. US showed complex abscess, Dr. Teresa performed drainage on 01/08. Antibiotic therapy with vancomycin started 01/08 and continued throughout hospital stay. Due to tendon involvement, ID consulted. Abscess culture grew MRSA sensitive to Bactrim, clindamycin, however due to tendon involvement noted during surgery ID recommended IV vancomycin therapy for 3-4 weeks. PICC line placed with home health arranged to administer IV vancomycin as ordered below. Patient will follow up with Dr. Teresa for the hand and Dr. Polanco for ID. Diabetes noted to be in relatively poor control during hospital stay, A1C of 10.4%. Discharged with low-dose metformin and lisinopril. PCP Dr. Naranjo to titrate up if indicated. Pt Condition on Discharge: Good Discharge Disposition: Discharge Home Discharge Instructions DIET: Follow Instructions for: As Tolerated, No Restrictions Activities you can perform: Regular-No Restrictions Follow up Referrals: Appointment for Follow Up - 10 Days @ [facility] with Brooke Polanco MD Appointment for Follow Up - 1 Week with Logan Naranjo MD [facility]3 Hand Surgery - 01/12/17 with Mandy Teresa MD New Medications: Epinephrine Inj (Epinephrine Inj) 1 Mg/Ml Inj 0.3 MG IV PUSH ONCE PRN ALLERGIC REACTION #1 VIAL Epinephrine Inj (Epinephrine Inj) 1 Mg/Ml Inj 0.3 MG SQ ONCE Give with any signs of respiratory distress. PRN ALLERGIC REACTION #1 VIAL Hydrocortisone Inj (Solu-Cortef Inj) 250 Mg Inj 250 MG IV PUSH ONCE Give over 30-60 seconds. PRN ALLERGIC REACTION #1 Ref 0 VIAL Lisinopril (Lisinopril) 5 Mg Tab 5 MG PO DAILY Blood Pressure Management #30 Ref 0 TAB Metformin (Metformin) 500 Mg Tab 500 MG PO DAILY With a meal Blood Sugar Management #30 Ref 0 TAB Vancomycin Inj (Vancomycin Inj) 1,000 Mg Inj 1000 MG IV Q12HR Infection Days 28 Ref 0 BAG Continued Medications: Ibuprofen (Ibuprofen) 600 Mg Tab 600 MG PO Q8HR PRN PAIN SCALE 1 TO 10 #20 Ref 0 TAB Discontinued Medications: Cephalexin (Keflex) 500 Mg Cap 500 MG PO Q6H Infection Days 10 Ref 0 CAP Sulfamethoxazole-Trimethoprim (Bactrim DS) 800-160 Mg Tab 1 TAB PO BID Infection Days 10 Ref 0 TAB Ashish Tovar MD R1 Jan 11, 2017 9:53 am
--- NOTE | 2017-01-11 11:18 | MP ---
cc: LICHA HERNANDEZ DATE OF SURGERY: 01/08/2017 PREOPERATIVE DIAGNOSIS Abscess left dorsal hand with possible retained foreign body. POSTOPERATIVE DIAGNOSIS Abscess left dorsal hand with possible retained foreign body. PROCEDURE Incision and drainage abscess dorsum left hand including the extensor tendon sheath. ANESTHESIA General and local. TOURNIQUET TIME 23 minutes at 250 mmHg. SPECIMEN Culture. INDICATION FOR PROCEDURE Marii Rodriguez is a pleasant 61-year-old female with a one-week history of swelling over the dorsum of the hand after being struck by a cactus. Aspiration revealed lalito pus and she elected to proceed with surgical intervention. The risks were explained including but not limited to sepsis, wound complications, infection, need for additional surgeries, stiffness and pain, and she elected to proceed. DESCRIPTION OF PROCEDURE The patient was identified in the preoperative holding area and the correct extremity was marked. The patient was taken to the operating room where anesthesia was induced. The left upper extremity was prepped and draped in a normal sterile fashion. The tourniquet was inflated to 250 mmHg without Esmarch. An approximately 1 cm incision was made on the dorsum of the hand in line with the third metacarpal just proximal to the metacarpal phalangeal joint. Upon doing this there was lalito purulent drainage which was sent for culture. The wound was then irrigated with three liters of antibiotic saline. There was significant tissue around the extensor tendons and the decision was made to extend the incision another centimeter proximally to ensure good debridement around the extensor tendons. This was completed in addition to another three liters of antibiotic saline. The tourniquet was released. Hemostasis was obtained. The wound was closed loosely with simple sutures of chromic and quarter-inch packing was placed proximally. The patient was placed into a soft bulky dressing and awoken from anesthesia without any complications. 10 cc of 2% lidocaine without epinephrine was used for local anesthesia over the hand. The patient will be admitted for IV antibiotics, consult with Infectious Disease, and will be seen by occupational therapy for range of motion. MD TRESSA Conway/KHADIJAH /3:32 PM /11:06 AM [facility]Bigg
[2017-01-11 12:00] VITALS: BP 167/81; PULSE 69; RESP 18; TEMP 97.8; O2SAT 98
[2017-01-11 13:22] LABS: APTT (PATIENT) 26.8 SEC (24.3-30.1); PROTHROMBIN TIME - PATIENT 10.8 SEC (9.8-11.6)
[2017-01-11 16:00] VITALS: BP 137/72; PULSE 67; RESP 18; TEMP 97.4; O2SAT 97
[2017-01-11] MEDS ORDERED: SODIUM CHLORIDE 0.9% FLUSH 10 ML FLUSH IV FLUSH PRN (18:00)
--- NOTE | 2017-01-11 18:15 | RADRPT ---
EXAM DATE/TIME: 01/11/2017 17:47 [facility] COMPARISON: No previous studies available for comparison. INDICATIONS : PICC line placement MEDICAL HISTORY : None. SURGICAL HISTORY : None. ENCOUNTER: Initial ACUITY: 1 day PAIN SCORE: 0/10 LOCATION: Bilateral chest FINDINGS: Right arm PICC line is present good position with tip overlying SVC. There is no evidence of consulta tion placement. Mild right apical pleural thickening of undetermined chronicity. The lungs are otherw ise grossly clear with no effusion present. Cardiac contours are satisfactory for projection CONCLUSION: Satisfactory PICC line positioning. Charan Raines MD on January 11, 2017 at 18:13 Board Certified Radiologist. This report was verified electronically.
[2017-01-12] MEDS ORDERED: PHARMACY ORDERED LAB ONE (07:45)
[2017-01-12] MEDS ORDERED: SODIUM CHLORIDE 0.9% FLUSH 10 ML FLUSH IV FLUSH SCH (09:00)
[2017-01-16] MEDS ORDERED: BLOO1KIT49 (15:43)
[2017-01-27] MEDS ORDERED: METF500T PO (13:09)
[2017-01-30] MEDS ORDERED: METF500T PO (12:17)
[2017-02-03] MEDS ORDERED: METF500T PO (08:50)
[2017-02-03] MEDS ORDERED: LISI-519 PO (09:00)
[2017-03-06] MEDS ORDERED: BLOOD GLUCOSE T1 TES (22:36)
== END 2017-01-11 18:30 | disposition home or self-care (01) | DRG 872 ==
LOC: NEPE 14:10 → NEDA 19:43 → INTOOBSV 19:43 → NEPGCP 23:20 → N07B 01-08 14:02 → OBSVTOIN 01-08 21:01
PROVIDERS: ADMIT Family Medicine; ATTEND Family Medicine
PROC: 0J9K0ZX Drainage of Left Hand Subcutaneous Tissue and Fascia, Open Approach, Diagnostic (ICD-10-PCS; principal; 2017-01-08 13:59)
DX: A41.9 Sepsis, unspecified organism (principal); E87.2 Acidosis; L03.114 Cellulitis of left upper limb; L02.512 Cutaneous abscess of left hand; B95.62 Methicillin resistant Staphylococcus aureus infection as the cause of diseases classified elsewhere; E11.65 Type 2 diabetes mellitus with hyperglycemia; E78.5 Hyperlipidemia, unspecified; Z86.11 Personal history of tuberculosis
CPT/HCPCS: 71010; 73110; 73130; 76999; 80048; 80076; 80202; 82565; 82948; 83036; 83605; 85025; 85610; 85652; 85730; 86140; 86403; 87015; 87040; 87070; 87102; 87116; 87147; 87186; 87205; 87206; 96365; 96367; G0378; J0690; J1815; J2250; J2370; J2405; J2543; J3010; J3370; J7030; J7050; J7120